=== PATIENT | male | born 1930 | race Caucasian/White ===

== ENCOUNTER 2017-10-24 10:42 | Outpatient (CLI) | payer MEDICARE, OTHER ==
[2017-10-24] MEDS ORDERED: Gadobenate Dimeglumine 529 MG/1 ML (20ML VIAL) ONE (14:59)
== END 2017-10-24 10:43 | disposition home or self-care (01) ==
LOC: BICMRI 10:42
PROVIDERS: ATTEND Surgery
DX: R22.41 Localized swelling, mass and lump, right lower limb (principal)
CPT/HCPCS: A9579

== ENCOUNTER 2017-12-05 12:52 | Emergency (ER) | payer MEDICARE, OTHER ==
[2017-12-05 13:46] LABS: Hemoglobin 15.4 g/dL (14.0-18.0); Mean Corpuscular HGB CONC 32.4 g/dL (32.0-36.0); Mean Corpuscular Hemoglobin 31.3 pg (27.0-31.0); Mean Corpuscular Volume 96.7 fL (78.0-98.0); Mean Platelet Volume 8.4 fL (7.4-10.4); Platelet Count 197 thou/uL (130-400); RBC Distribution Width 13.5 % (11.5-14.5); Red Blood Cell (RBC) Count 4.93 mill/uL (4.70-6.10); White Blood Cell (WBC) Count 27.3 thou/uL (4.8-10.8)
--- NOTE | 2017-12-05 13:49 | RAD ---
FRONTAL RADIOGRAPH CHEST: Date: 12/05/17 COMPARISON: 09/01/15. HISTORY: Cough with shortness of breath. FINDINGS: There is a small left pneumothorax in the left lung apex. There is bilateral perihilar air space dise ase, right greater than left, with pulmonary vascular prominence. There is pleural density in the lef t base with obscuration of the left hemidiaphragm and the left costophrenic angle. Pleural density in the left base is unchanged. IMPRESSION: New small pneumothorax and left lung apex. Nonspecific bilateral perihilar air space disease, right g reater than left. This could be on the basis of edema or infectious pneumonitis. Follow-up imaging fo [facility] treatment advised. Results called to Dr. Fenton at 1345 hours on 12/05/17. CODE CR. POS: [facility]
[2017-12-05 14:11] LABS: ALT (SGPT) 8 U/L (8-55); AST (SGOT) 18 U/L (5-34); Albumin 3.6 g/dL (3.4-4.8); Alkaline Phosphatase 59 U/L (40-150); Anion Gap 18 mmol/L (10-20); BUN (Urea Nitrogen) 43 mg/dL (8.4-25.7); Bilirubin, Total 1.3 mg/dL (0.2-1.2); CK (CPK) 170 U/L (30-200); Calc. Creatinine Clearance 0 mL/min (70-130); Calcium 9.3 mg/dL (7.8-10.44); Carbon Dioxide 23 mmol/L (23-31); Chloride 99 mmol/L (98-107); Estimated GFR-MDRD 37; Glucose 106 mg/dL (83-110); Lipase 4 U/L (8-78); Potassium 4.5 mmol/L (3.5-5.1); Protein, Total 6.6 g/dL (5.8-8.1); Sodium 135 mmol/L (136-145)
[2017-12-05 14:15] LABS: CKMB 5.3 ng/mL (0-6.6); Troponin I 0.034 ng/mL (< 0.028)
[2017-12-05 14:17] LABS: MDiff Complete? YES
[2017-12-05 14:18] LABS: Band 30 % (5-11); Dohle Bodies SLIGHT; Lymphocytes 3 % (21-51); Metamyelocyte 14 % (0-0); Monocytes 4 % (0-10); Myelocyte 1 % (0-0); Neutrophil 48 % (42-75); PLT Morphology Comment Appears Adequate; RBC Morphology Normal; Toxic Granulation SLIGHT; Vacuoles SLIGHT
[2017-12-05] MEDS ORDERED: Sodium Chloride 0.9% 100 ML ONE (14:49)
[2017-12-05] MEDS ORDERED: cefTRIAXone\\ROCEPHIN 2 GM VIAL ONE (14:49)
[2017-12-05] MEDS ORDERED: Azithromycin 500 MG VIAL ONE (15:30)
== END 2017-12-05 16:39 | disposition left against medical advice (07) ==
LOC: ERS 12:52
DX: J18.9 Pneumonia, unspecified organism (principal); J93.11 Primary spontaneous pneumothorax
CPT/HCPCS: 36415; 71045; 80053; 82553; 83690; 84484; 85025; 87040; 93005; J0456; J0696; J7050

== ENCOUNTER 2017-12-06 09:56 | Inpatient (IN) | payer MEDICARE, OTHER ==
[2017-12-06] MEDS ORDERED: Magnesium Sulfate 2 GM/100 ML BAG ONE (10:14)
[2017-12-06] MEDS ORDERED: Dexamethasone 10 MG/ML VIAL ONE (10:14)
[2017-12-06 10:31] LABS: Hemoglobin 15.6 g/dL (14.0-18.0); Mean Corpuscular HGB CONC 32.5 g/dL (32.0-36.0); Mean Corpuscular Hemoglobin 31.5 pg (27.0-31.0); Mean Platelet Volume 8.2 fL (7.4-10.4); Platelet Count 211 thou/uL (130-400); RBC Distribution Width 13.7 % (11.5-14.5); Red Blood Cell (RBC) Count 4.96 mill/uL (4.70-6.10); White Blood Cell (WBC) Count 25.1 thou/uL (4.8-10.8)
--- NOTE | 2017-12-06 10:32 | RAD ---
SINGLE VIEW OF THE CHEST: Comparison: 12-05-17 History: Shortness of breath for several days, cough. FINDINGS: Single view of the chest shows a cardiomediastinal silhouette which is upper limits of normal in size . There is volume loss in the left thorax. There also appears to be a moderate left pleural effusion. Increased interstitial markings are present. There may be airspace opacities scattered throughout reyna th lower lobes. IMPRESSION: 1. Moderate left pleural effusion. 2. Bilateral lower lobe airspace opacities. POS: [facility]
[2017-12-06 10:42] LABS: CO2 Tension 46.2 mmHg (35.0-45.0); O2 Tension (PaO2) 48.2 mmHg (> 60.0); pH, Arterial 7.36 (7.35-7.45)
[2017-12-06 10:43] LABS: Actual Bicarbonate (HCO3a) 25.4 mEq/L (22-28); Base Excess (BEa) -0.4 mEq/L (-2.0 to +3.0)
[2017-12-06 10:44] LABS: Hematocrit-ABG 49.9 % (42.0-52.0); Hemoglobin (Hb) 14.5 g/dL (14.0-18.0)
[2017-12-06 10:45] LABS: Calcium, Ionized 1.2 mmol/L (1.12-1.30)
[2017-12-06 10:46] LABS: Analyzer IN Cardio ER; Puncture Site L.R.
[2017-12-06] MEDS ORDERED: Albuterol Sulfate 2.5 mg/0.5 ml Neb ONE (10:49)
[2017-12-06 10:55] LABS: ALT (SGPT) 10 U/L (8-55); AST (SGOT) 22 U/L (5-34); Albumin 3.4 g/dL (3.4-4.8); Alkaline Phosphatase 68 U/L (40-150); Anion Gap 18 mmol/L (10-20); BUN (Urea Nitrogen) 63 mg/dL (8.4-25.7); Bilirubin, Total 0.6 mg/dL (0.2-1.2); CK (CPK) 172 U/L (30-200); Calc. Creatinine Clearance 0 mL/min (70-130); Calcium 9.5 mg/dL (7.8-10.44); Carbon Dioxide 21 mmol/L (23-31); Chloride 100 mmol/L (98-107); Estimated GFR-MDRD 33; Globulin 3.4 g/dL (2.4-3.5); Glucose 105 mg/dL (83-110); Lipase 6 U/L (8-78); Potassium 4.6 mmol/L (3.5-5.1); Protein, Total 6.8 g/dL (5.8-8.1); Sodium 134 mmol/L (136-145)
[2017-12-06 10:57] LABS: Band 27 % (5-11); MDiff Complete? YES; Monocytes 6 % (0-10); Neutrophil 66 % (42-75); PLT Morphology Comment Appears Adequate; RBC Morphology Normal; Reactive Lymphocytes 1 % (0-10)
[2017-12-06 10:59] LABS: Troponin I 0.276 ng/mL (< 0.028)
[2017-12-06 11:15] LABS: CKMB 7.8 ng/mL (0-6.6)
--- NOTE | 2017-12-06 12:27 | CT ---
CT ARTERIOGRAM CHEST WITH IV CONTRAST AND 3D MIP IMAGING: HISTORY: Chest pain. Dyspnea. FINDINGS: There is good contrast opacification of the pulmonary arteries and thoracic aorta with normal branchi ng of the great vessels. Small left apical pneumothorax with a small amount of bilateral pleural flu id, left greater than right. Extensive atelectasis at the right lung base. Peripheral prominent chr onic-appearing interstitial thickening with mild scattered tubular bronchiectasis. IMPRESSION: 1. No CT evidence of pulmonary embolus. 2. Small left hydropneumothorax, favored to be related to chronic lung disease and emphysema. 3. 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 Findings were called to Dr. Bowie in the emergency department at 1142 hours. CODE CR POS: [facility]
[2017-12-06] MEDS ORDERED: ISOVUE-370 76%-LOCM 1 ML ONE (12:30)
[2017-12-06 13:56] LABS: Troponin I 0.257 ng/mL (< 0.028)
[2017-12-06 14:12] LABS: Lactic Acid 2.4 mmol/L (0.5-2.2)
[2017-12-06] MEDS ORDERED: Acetaminophen 325 MG TAB PO PRN (14:34)
[2017-12-06] MEDS ORDERED: Guaifenesin DM 100-10/5 ML UDCUP PO PRN (14:34)
[2017-12-06 15:45] VITALS: BMI 23.9
[2017-12-06] MEDS: Cefepime 1 GM in Sodium Chloride 0.9% 100 ML IVPB SCH (16:20)
[2017-12-06] MEDS: Sodium Chloride 0.9% 1,000 ML IV SCH (16:20)
[2017-12-06] MEDS: Benzonatate 100 MG CAP PO SCH ×2 (16:23→21:32)
[2017-12-06 17:23] LABS: Troponin I 0.228 ng/mL (< 0.028)
[2017-12-06] MEDS: Famotidine 20 MG TAB PO SCH (21:32)
[2017-12-06] MEDS: guaiFENesin ER 600 MG TAB PO SCH (21:32)
[2017-12-06] MEDS: Docusate 100 MG CAP PO SCH (21:32)
--- NOTE | 2017-12-06 22:50 | HP ---
REASON FOR ADMISSION: Acute respiratory failure with hypoxia, pneumonia, acute kidney injury, metabolic acidosis, acute congestive heart failure exacerbation with likely diastolic dysfunction, demand ischemia, and possible sepsis. HISTORY OF PRESENTING ILLNESS: The patient says he has been feeling very lethargic and sleeping from last 3 days. In fact, came to emergency room yesterday but went against advice and he was asked to get hospitalized. He is having increasing coughing episodes and is short of breath. Patient has dry cough due to his underlying chronic obstructive pulmonary disease, but it is worse now. He is also sounding different per . Patient is not on home oxygen and uses inhaler only occasionally. The last time, he saw Dr. Puga was more than 2 or 3 years ago. PAST MEDICAL AND SURGICAL HISTORY: History of COPD, benign prostatic hypertrophy likely right medial upper thigh large lipoma. CURRENT MEDICATIONS: Finasteride 5 mg daily, Avodart 0.5 mg daily, Flomax 0.4 mg daily, promethazine with codeine at bedtime. ALLERGIES: No known drug allergies. PERSONAL HISTORY: Quit smoking more than 30 years ago, prior to which has smoked almost 2 packs a day for 40 years and was also smoking cigars then. He drinks 1 ounce of vodka with soda at noon and a glass of red wine on alternate days with his before dinner. Does not abuse drugs. Lives with his , normally ambulates with a cane. FAMILY HISTORY: Both parents at the age of 98 years from natural causes. REVIEW OF SYSTEMS: The following complete review of systems was negative, unless otherwise mentioned in the HPI or below: Constitutional: Weight loss or gain, ability to conduct usual activities. Skin: Rash, itching. Eyes: Double vision, pain. ENT/Mouth: Nose bleeding, neck stiffness, pain, tenderness. Cardiovascular: Palpitations, dyspnea on exertion, orthopnea. Respiratory: Shortness of breath, wheezing, cough, hemoptysis, fever, or night sweats. Gastrointestinal: Poor appetite, abdominal pain, heartburn, nausea, vomiting, constipation, or diarrhea. Genitourinary: Urgency, frequency, dysuria, nocturia. Musculoskeletal: Pain, swelling. Neurologic/Psychiatric: Anxiety, depression. Allergy/Immunologic: Skin rash, bleeding tendency. PHYSICAL EXAMINATION: GENERAL: The patient is an 87-year-old male who is currently not in any acute distress and is tolerating BiPAP at present. VITAL SIGNS: Blood pressure 108/54, pulse 120 per minute, respiratory rate 28 per minute, temperature 97.5 degrees Fahrenheit, saturating 95% on BiPAP. NECK: Supple, no elevated JVD. HEENT: Extraocular muscles intact. Pupils reacting to light. Oral cavity mucous membranes are dry. No exudates or congestion. CARDIOVASCULAR SYSTEM: S1, S2 heard. Regular rhythm. RESPIRATORY SYSTEM: Air entry 1+ bilateral, scattered rhonchi, and wheezes plus bilateral. ABDOMEN: Soft, bowel sounds heard. No tenderness, rigidity, or guarding. EXTREMITIES: There is mild peripheral edema, no calf tenderness. VASCULAR SYSTEM: Peripheral pulses 1+ bilateral, no ischemic ulcerations or gangrene. CENTRAL NERVOUS SYSTEM: No gross focal deficits noted. Patient is a bit hard of hearing, otherwise no focal neurologic deficits noted. PSYCHIATRIC SYSTEM: Patient is a bit anxious, otherwise no hallucinations or delusions. LABORATORY AND X-RAY FINDINGS: EKG done shows sinus tachycardia at 118 beats per minute. There is nonspecific ST-T wave changes noted. White count of 25, H &H 15 and 48, platelet count 211 with 66% neutrophils and 27% bands. Blood gas done shows a pH of 7.36, PCO2 of 46, pO2 of 48. Sodium 134, serum bicarbonate 21, BUN 63, creatinine 1.92. Lactic acid was 3.4. CK-MB 7.8, troponin I 0.27. BNP is 602. Albumin is 3.4. CT angio chest done shows no evidence of pulmonary embolus. There is small left hydropneumothorax, also findings of chronic interstitial fibrotic lung disease and multifocal pneumonitis. CLINICAL IMPRESSION AND PLAN: Patient will be admitted to [facility] for acute respiratory failure with hypoxia on BiPAP at present. We will place him on DuoNeb, Solu-Medrol 40 mg IV q.6 hourly. Blood cultures have been obtained in the ER and will obtain sputum cultures once he is able to provide one. He currently has some dry coughing spells. He will be on cefepime and Levaquin based on renal function. Gentle hydration with small amount of normal saline at 40 mL per hour as long as he is on BiPAP. Aspirin 81 mg daily, along with home doses of Proscar, Flomax, and Avodart. I have discussed code status with him and he wants to be a DNR. His is the power of deputy attorney general. The ER physician has already spoken to Dr. Emerson who is on-call for Pulmonology. [facility]
--- NOTE | 2017-12-07 03:15 | CON ---
DATE OF CONSULTATION: 12/06/2017 CONSULTING PHYSICIAN: Barbara Gonzalez MD REQUESTING PHYSICIAN: Fab Feliciano MD REASON FOR CONSULTATION: Acute kidney injury. IMPRESSION: 1. Acute kidney injury. This is likely cytokine-mediated in the context of infection; however, a co mponent of cardiorenal syndrome is possible. 2. Respiratory distress likely in the context of pleural effusion and pneumonitis. PLAN: 1. The patient having been exposed to contrast is likely that his creatinine might get worse before it begins to get better in the context of ____ contrast nephropathy; however, we will continue to daniel ally dose all medications and continue renal supportive measures. The patient is currently getting a very small amount of IV fluid, which is okay given the respiratory status of this patient. 2. Further management will be dependent on the clinical course as well as further investigations, re lates to parathyroid hormone and other electrolytes. PAST MEDICAL HISTORY: Significant for COPD. ALLERGIES: No known drug allergy. MEDICATIONS: Reviewed as documented on [employer]. SOCIAL HISTORY: The patient is , used to be at [employer]. Quit tobacco some years ago. REVIEW OF SYSTEMS: As documented in the body of the history. All the other systems were reviewed an d found not to be significantly related to the presenting illness. LABORATORY INVESTIGATION: Showed a white count of 25,000. Chemistry with a creatinine of 1.92. PHYSICAL EXAMINATION: GENERAL: The patient was found to be in some respiratory distress, noted with the following vital si gns. VITAL SIGNS: Afebrile with temperature 98.7, pulse 92, respiratory rate of 28, O2 sat 100% on 3 lite rs. HEENT: Unremarkable. CARDIOVASCULAR SYSTEM: First and second heart sounds were heard. RESPIRATORY SYSTEM: Reveals some scattered wheeze. EXTREMITIES: No peripheral edema. NEUROLOGIC: Alert, oriented. No lateralizing signs. LYMPHATICS: No peripheral lymphadenopathy. SUMMARY: An 87-year-old gentleman who presented here with shortness of breath and noted with elevate d creatinine. Thank you for this consultation. We will follow with you.
[2017-12-07 05:50] LABS: Band 29 % (5-11); Hemoglobin 14.1 g/dL (14.0-18.0); Lymphocytes 1 % (21-51); MDiff Complete? YES; Mean Corpuscular HGB CONC 33.1 g/dL (32.0-36.0); Mean Corpuscular Volume 96.7 fL (78.0-98.0); Mean Platelet Volume 8.4 fL (7.4-10.4); Metamyelocyte 1 % (0-0); Neutrophil 69 % (42-75); PLT Morphology Comment Appears Adequate; Platelet Count 189 thou/uL (130-400); RBC Distribution Width 13.5 % (11.5-14.5); Red Blood Cell (RBC) Count 4.41 mill/uL (4.70-6.10); White Blood Cell (WBC) Count 19.3 thou/uL (4.8-10.8)
[2017-12-07 05:52] LABS: Anion Gap 12 mmol/L (10-20); BUN (Urea Nitrogen) 61 mg/dL (8.4-25.7); Calc. Creatinine Clearance 45 mL/min (70-130); Calcium 9.2 mg/dL (7.8-10.44); Carbon Dioxide 25 mmol/L (23-31); Chloride 104 mmol/L (98-107); Estimated GFR-MDRD 57; Glucose 159 mg/dL (83-110); Potassium 3.9 mmol/L (3.5-5.1); Sodium 137 mmol/L (136-145)
--- NOTE | 2017-12-07 08:19 | CON ---
DATE OF CONSULTATION: 12/06/2017 HISTORY OF PRESENT ILLNESS: Brody Patton is an 87-year-old gentleman who admitted to the hospital with pneumonia and left-sided spontaneous pneumothorax. For the last week, he has been short of breath; prior to that, had been in excellent health. 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 Apparently, in the ER last night where he showed bilateral bronchopneumonia and left-sided pneumothorax. Apparently, he went home against medical advice. He drinks 5 drinks a day. Denies any alcohol abuse. He has seen Dr. Puga in our office some years ago. On most days, he can walk a block without getting markedly short of breath. PAST MEDICAL HISTORY: Apparently a history of bronchiectasis, mild hypertension. PAST SURGICAL HISTORY: Hernia repair. CHRONIC MEDICATION FROM HOME: Apparently none that to speak of per his . ALLERGIES: None. SOCIAL/FAMILY HISTORY: Unremarkable. REVIEW OF SYSTEMS: Ten-point negative. PHYSICAL EXAMINATION: GENERAL: His BiPAP was removed. He appears to be in no distress. VITAL SIGNS: Sats are 98 on 2 liters, pulse 81, blood pressure 130\70. CHEST: Decreased breath sounds without any wheezing. CARDIAC: Normal S1, S2, no gallops. ABDOMEN: Soft, no masses. LABORATORY DATA: White count is 25,000, H&H 15 and 48, platelet count is 211. His pO2 was apparently 48, pCO2 46, pH 7.36 this morning. Electrolytes are normal. Creatinine 1.92, BUN is 63. CK slightly elevated. BNP 602. IMAGING: His chest x-ray showed a small left apical pneumothorax, bilateral infiltrates with possibly small left pleural effusion which apparently has been tapped by Dr. Puga in the past. IMPRESSION: 1. Bronchopneumonia bronchiectasis. 2. Renal failure. 3. Left-sided pneumothorax. 4. Left-sided pleural effusion. PLAN: Agree with present antibiotics, nebs treatment and steroids. He may need a small bore chest tube for his left-sided pneumothorax. I doubt this pneumothorax is going to resolve spontaneously. We will notify Dr. Puga. Await sputum cultures. Consultation note, 70%, 50% in direct patient care. [facility]
--- NOTE | 2017-12-07 09:11 | RAD ---
SINGLE VIEW OF THE CHEST: Comparison: 12-06-17 History: Ventilated patient with respiratory failure. FINDINGS: Single view of the chest shows a cardiomediastinal silhouette is upper limits in size. Scarring is se en in the left thorax. There appears to be a small left pleural effusion. There is a stable small lef t apical pneumothorax. Airspace opacity seen in the right hilar region. IMPRESSION: Stable exam. POS: [facility]
[2017-12-07] MEDS: Benzonatate 100 MG CAP PO SCH ×3 (09:28→20:21)
[2017-12-07] MEDS: Enoxaparin Sodium 40 MG/0.4 ML SYRINGE SC SCH (09:28)
[2017-12-07] MEDS: Docusate 100 MG CAP PO SCH ×2 (09:29→20:22)
[2017-12-07] MEDS: Finasteride 5 MG TAB PO SCH (09:29)
[2017-12-07] MEDS: guaiFENesin ER 600 MG TAB PO SCH ×2 (09:29→20:21)
[2017-12-07] MEDS: Tamsulosin HCl 0.4 MG CAP PO SCH (09:29)
[2017-12-07] MEDS: Dutasteride 0.5 MG CAP PO SCH (09:29)
--- NOTE | 2017-12-07 13:36 | PDOC.PN ---
- Subjective Encounter Start Date: 12/07/17 Encounter Start Time: 11:40 Subjective: is off bipap, on nasal canula -: no trouble breathing, is feeling better - Objective MAR Reviewed: Yes Vital Signs & Weight: Vital Signs (12 hours) Temp Pulse Resp BP Pulse Ox 12/07/17 12:02 97.7 F 85 25 H 129/57 L 100 12/07/17 10:47 87 16 100 12/07/17 08:00 97.5 F L 90 28 H 96 12/07/17 07:39 97.5 F L 90 28 H 125/59 L 100 12/07/17 06:33 86 16 100 12/07/17 06:32 100 12/07/17 04:34 97.6 F 80 18 112/46 L 97 12/07/17 02:08 73 16 98 Weight Weight 167 lb I&O: 12/06/17 12/07/17 12/08/17 06:59 06:59 06:59 Intake Total 889 Output Total 430 Balance 459 Result Diagrams: 12/07/17 05:01 12/07/17 05:01 Phys Exam - Physical Examination HEENT: PERRLA, moist MMs Neck: no JVD, supple Respiratory: no wheezing rhonchi+ Cardiovascular: RRR, no significant murmur Gastrointestinal: soft, non-tender, positive bowel sounds Musculoskeletal: no edema, pulses present Neurological: non-focal, moves all 4 limbs Psychiatric: normal affect, A&O x 3 Dx/Plan (1) COPD exacerbation Code(s): J44.1 - CHRONIC OBSTRUCTIVE PULMONARY DISEASE W (ACUTE) EXACERBATION Status: Acute (2) Acute respiratory failure with hypoxia Code(s): J96.01 - ACUTE RESPIRATORY FAILURE WITH HYPOXIA Status: Resolved (3) REUBEN (acute kidney injury) Code(s): N17.9 - ACUTE KIDNEY FAILURE, UNSPECIFIED Status: Acute (4) Pneumothorax Code(s): J93.9 - PNEUMOTHORAX, UNSPECIFIED Status: Acute (5) BPH (benign prostatic hyperplasia) Code(s): N40.0 - BENIGN PROSTATIC HYPERPLASIA WITHOUT LOWER URINRY TRACT SYMP Status: Chronic Qualifiers: Lower urinary tract symptom presence: unspecified whether lower urinary tract symptoms present Qualified Code(s): N40.0 - Benign prostatic hyperplasia without lower urinary tract symptoms - Plan is stable on nasal canula oxygen -: nebs, steroids -: cefepime and levaquin -: creatinine is 1.2 this am -: wbc down to 19k * . Review of Systems - Medications/Allergies Allergies/Adverse Reactions: Allergies Allergy/AdvReac Type Severity Reaction Status Date / Time No Known Allergies Allergy Verified 12/06/17 16:12 Medications: Current Medications Acetaminophen (Tylenol) 650 mg PO Q4H PRN PRN Reason: Headache/Fever or Pain Albuterol/Ipratropium (Duoneb) 3 ml NEB [id number] [facility] Last Admin: 12/07/17 10:47 Dose: 3 ml Aspirin (Aspirin Chewable) 81 mg PO DAILY [facility] Last Admin: 12/07/17 09:29 Dose: 81 mg Benzonatate (Tessalon) 100 mg PO TID [facility] Last Admin: 12/07/17 09:28 Dose: 100 mg Docusate Sodium (Colace) 100 mg PO BID [facility] Last Admin: 12/07/17 09:29 Dose: Not Given Dutasteride (Avodart) 0.5 mg PO DAILY [facility] Last Admin: 12/07/17 09:29 Dose: 0.5 mg Enoxaparin Sodium (Lovenox) 40 mg SC 0900 [facility] Last Admin: 12/07/17 09:28 Dose: 40 mg Famotidine (Pepcid) 20 mg PO 2100 [facility] Last Admin: 12/06/17 21:32 Dose: 20 mg Finasteride (Proscar) 5 mg PO DAILY [facility] Last Admin: 12/07/17 09:29 Dose: 5 mg Guaifenesin (Mucinex) 600 mg PO Q12HR [facility] Last Admin: 12/07/17 09:29 Dose: 600 mg Guaifenesin/Dextromethorphan (Robitussin Dm) 15 ml PO Q4H PRN PRN Reason: Cough Cefepime HCl 1 gm/ Sodium (Chloride) 100 mls @ 200 mls/hr IVPB 1600 [facility] Last Admin: 12/06/17 16:20 Dose: 100 mls Levofloxacin 250 mg/ Device 50 mls @ 100 mls/hr IVPB 1000 [facility] Last Admin: 12/07/17 09:29 Dose: 50 mls Sodium Chloride (Normal Saline 0.9%) 1,000 mls @ 40 mls/hr IV .Q24H [facility] Last Admin: 12/06/17 16:20 Dose: 1,000 mls Methylprednisolone Sodium Succinate (Solu-Medrol) 40 mg IVP Q6HR [facility] Last Admin: 12/07/17 13:09 Dose: 40 mg Tamsulosin HCl (Flomax) 0.4 mg PO DAILY [facility] Last Admin: 12/07/17 09:29 Dose: 0.4 mg
--- NOTE | 2017-12-07 15:01 | PRG ---
DATE OF SERVICE: 12/07/2017 SUBJECTIVE: Says he feels 100% better than he felt yesterday. OBJECTIVE: VITAL SIGNS: He is afebrile, heart rate is 85, respiratory rates in the 20s, oximetry is 100%, blood pressure 129/57. LUNGS: Remarkable for crackles in both bases. HEART: Regular rhythm. ABDOMEN: Soft. LABORATORY DATA: White count 19.3, still has 29% bands. Sodium 137, potassium 3.9, chloride 104, bicarbonate 25, BUN 61, creatinine 1.21. IMPRESSION: 1. Pneumonia. 2. Bronchiectasis. 3. Status post thoracentesis for small left effusion last year that was exudative, culture negative and pathology negative. I suspect this was just parapneumonic. 4. Chronic kidney disease at 87 years of age, not surprising. 5. Small left pneumothorax and reviewed today's chest radiograph and there has been no progression, so no chest tube is indicated at this time. I do not feel thoracentesis is indicated either at this time. PLAN: Continue current antimicrobial therapy as well as nebulizer treatments. We will continue to azam roman. I met with his daughter. 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
[2017-12-07] MEDS: Cefepime 1 GM in Sodium Chloride 0.9% 100 ML IVPB SCH (15:38)
[2017-12-07] MEDS: Sodium Chloride 0.9% 1,000 ML IV SCH (16:54)
[2017-12-07] MEDS: Famotidine 20 MG TAB PO SCH (20:21)
--- NOTE | 2017-12-08 01:47 | PRG ---
DATE OF SERVICE: 12/07/2017 SUBJECTIVE: Patient is seen and examined, seems to be doing better noted with the following vital si gns. OBJECTIVE: VITAL SIGNS: Afebrile, respiratory rate of 22, O2 sat is 100%, heart rate of 85. HEENT: Unremarkable. Moist oral mucosa. NECK: Supple. No conjunctival injection or icterus. CARDIOVASCULAR: First and second heart sounds were heard. RESPIRATORY: Clear to auscultation. DIGESTIVE: Revealed a benign abdomen with positive bowel sounds. EXTREMITIES: No peripheral edema. SKIN: No new gross rash. LYMPHATICS: No peripheral lymphadenopathy. LABORATORY INVESTIGATIONS: Showed a creatinine down to 1.2. IMPRESSION: 1. Acute kidney injury which seems to have much improved. 2. Pneumonitis on treatment. 3. Chronic lung disease. PLAN: 1. Continue current renal supportive measures. 2. avoid potentially nephrotoxic agents and renally dose all medications. 3. Further management to be dependent on the clinical course.
--- NOTE | 2017-12-08 07:54 | RAD ---
SINGLE VIEW OF THE CHEST: COMPARISON: 12/07/17. HISTORY: Ventilated patient with respiratory failure. FINDINGS: A single view of the chest shows an enlarged cardiomediastinal silhouette. There is a stable small l eft apical pneumothorax. A small left pleural effusion is seen with adjacent atelectasis. IMPRESSION: Stable exam. POS: [facility]
[2017-12-08 09:04] LABS: #Lymphocytes 0.6 thou/uL (1.20-3.40); #Monocytes 0.4 thou/uL (0.11-0.59); #Neutrophils 13.1 thou/uL (1.40-6.50); %Lymphocytes 4.1 % (21.0-51.0); %Neutrophils 92.8 % (42.0-75.0); Hemoglobin 13.2 g/dL (14.0-18.0); Mean Corpuscular Hemoglobin 31.3 pg (27.0-31.0); Mean Corpuscular Volume 97.8 fL (78.0-98.0); Mean Platelet Volume 8.2 fL (7.4-10.4); Platelet Count 195 thou/uL (130-400); RBC Distribution Width 13.7 % (11.5-14.5); Red Blood Cell (RBC) Count 4.21 mill/uL (4.70-6.10); White Blood Cell (WBC) Count 14.1 thou/uL (4.8-10.8)
[2017-12-08] MEDS: Finasteride 5 MG TAB PO SCH (09:19)
[2017-12-08] MEDS: Tamsulosin HCl 0.4 MG CAP PO SCH (09:19)
[2017-12-08] MEDS: Enoxaparin Sodium 40 MG/0.4 ML SYRINGE SC SCH (09:19)
[2017-12-08] MEDS: Dutasteride 0.5 MG CAP PO SCH (09:19)
[2017-12-08] MEDS: guaiFENesin ER 600 MG TAB PO SCH ×2 (09:19→20:01)
[2017-12-08] MEDS: Docusate 100 MG CAP PO SCH ×2 (09:19→20:01)
[2017-12-08] MEDS: Benzonatate 100 MG CAP PO SCH ×3 (09:19→20:01)
[2017-12-08 09:25] LABS: Anion Gap 11 mmol/L (10-20); BUN (Urea Nitrogen) 59 mg/dL (8.4-25.7); Calc. Creatinine Clearance 53 mL/min (70-130); Calcium 9.9 mg/dL (7.8-10.44); Carbon Dioxide 28 mmol/L (23-31); Chloride 106 mmol/L (98-107); Estimated GFR-MDRD 68; Glucose 180 mg/dL (83-110); Potassium 4.1 mmol/L (3.5-5.1); Sodium 141 mmol/L (136-145)
--- NOTE | 2017-12-08 12:14 | PDOC.PN ---
- Subjective Encounter Start Date: 12/08/17 Encounter Start Time: 11:20 Subjective: breathing better, no sob -: ambulated with PT a bit -: at bedside - Objective MAR Reviewed: Yes Vital Signs & Weight: Vital Signs (12 hours) Temp Pulse Resp BP Pulse Ox 12/08/17 11:33 97.5 F L 83 29 H 132/63 92 L 12/08/17 11:05 84 18 96 12/08/17 08:00 97.3 F L 84 26 H 12/08/17 07:57 97.3 F L 84 26 H 114/50 L 94 L 12/08/17 07:33 91 L 12/08/17 07:32 68 16 12/08/17 03:57 98.1 F 77 18 110/50 L 93 L 12/08/17 02:48 78 16 95 Weight Weight 167 lb I&O: 12/07/17 12/08/17 12/09/17 06:59 06:59 06:59 Intake Total 889 559 Output Total 430 Balance 459 559 Result Diagrams: 12/08/17 08:52 12/08/17 08:52 Phys Exam - Physical Examination HEENT: PERRLA, sclera anicteric Neck: no JVD, supple Respiratory: no wheezing rhonchi++ Cardiovascular: RRR, no significant murmur Gastrointestinal: soft, non-tender, positive bowel sounds Musculoskeletal: no edema, pulses present Neurological: non-focal, moves all 4 limbs Psychiatric: A&O x 3 Dx/Plan (1) COPD exacerbation Code(s): J44.1 - CHRONIC OBSTRUCTIVE PULMONARY DISEASE W (ACUTE) EXACERBATION Status: Acute (2) Acute respiratory failure with hypoxia Code(s): J96.01 - ACUTE RESPIRATORY FAILURE WITH HYPOXIA Status: Resolved (3) REUBEN (acute kidney injury) Code(s): N17.9 - ACUTE KIDNEY FAILURE, UNSPECIFIED Status: Acute (4) Pneumothorax Code(s): J93.9 - PNEUMOTHORAX, UNSPECIFIED Status: Acute (5) BPH (benign prostatic hyperplasia) Code(s): N40.0 - BENIGN PROSTATIC HYPERPLASIA WITHOUT LOWER URINRY TRACT SYMP Status: Chronic Qualifiers: Lower urinary tract symptom presence: unspecified whether lower urinary tract symptoms present Qualified Code(s): N40.0 - Benign prostatic hyperplasia without lower urinary tract symptoms - Plan on cefepime, levaquin, nebs, steroids -: echo shows good ef, has diastolic dysfunction and rvsp of 68mmhg -: wbc down to 14k from 25k, had a bit of margination, getting corrected with -: gentle hydration. -: encourage po intake, may tx to medical floor if ok with pulm * . Review of Systems - Medications/Allergies Allergies/Adverse Reactions: Allergies Allergy/AdvReac Type Severity Reaction Status Date / Time No Known Allergies Allergy Verified 12/06/17 16:12 Medications: Current Medications Acetaminophen (Tylenol) 650 mg PO Q4H PRN PRN Reason: Headache/Fever or Pain Albuterol/Ipratropium (Duoneb) 3 ml NEB [id number] [facility] Last Admin: 12/08/17 11:05 Dose: 3 ml Aspirin (Aspirin Chewable) 81 mg PO DAILY [facility] Last Admin: 12/08/17 09:18 Dose: 81 mg Benzonatate (Tessalon) 100 mg PO TID [facility] Last Admin: 12/08/17 09:19 Dose: 100 mg Docusate Sodium (Colace) 100 mg PO BID [facility] Last Admin: 12/08/17 09:19 Dose: 100 mg Dutasteride (Avodart) 0.5 mg PO DAILY [facility] Last Admin: 12/08/17 09:19 Dose: 0.5 mg Enoxaparin Sodium (Lovenox) 40 mg SC 0900 [facility] Last Admin: 12/08/17 09:19 Dose: 40 mg Famotidine (Pepcid) 20 mg PO 2100 [facility] Last Admin: 12/07/17 20:21 Dose: 20 mg Finasteride (Proscar) 5 mg PO DAILY [facility] Last Admin: 12/08/17 09:19 Dose: 5 mg Guaifenesin (Mucinex) 600 mg PO Q12HR [facility] Last Admin: 12/08/17 09:19 Dose: 600 mg Guaifenesin/Dextromethorphan (Robitussin Dm) 15 ml PO Q4H PRN PRN Reason: Cough Cefepime HCl 1 gm/ Sodium (Chloride) 100 mls @ 200 mls/hr IVPB 1600 [facility] Last Admin: 12/07/17 15:38 Dose: 100 mls Levofloxacin 250 mg/ Device 50 mls @ 100 mls/hr IVPB 1000 [facility] Last Admin: 12/08/17 09:19 Dose: 50 mls Sodium Chloride (Normal Saline 0.9%) 1,000 mls @ 40 mls/hr IV .Q24H [facility] Last Admin: 12/07/17 16:54 Dose: 1,000 mls Methylprednisolone Sodium Succinate (Solu-Medrol) 40 mg IVP Q6HR [facility] Last Admin: 12/08/17 11:52 Dose: 40 mg Tamsulosin HCl (Flomax) 0.4 mg PO DAILY [facility] Last Admin: 12/08/17 09:19 Dose: 0.4 mg
--- NOTE | 2017-12-08 16:11 | PRG ---
DATE OF SERVICE: 12/08/2017 SUBJECTIVE: Brody Patton says he continues to feel better. His feels he looks better today th an he looked last night. She says about every 12 hours he seems to be improved. OBJECTIVE: VITAL SIGNS: He is afebrile, heart rate 83, respirations 20, oximetry is 92, blood pressure 132/63. LUNGS: Still remarkable for crackles in both lung bases. CARDIOVASCULAR: Regular rhythm. ABDOMEN: Soft. LABORATORY DATA: White count is 14.1, hemoglobin 13.2, platelets 195. Manual differential was not d one today. Sodium 141, potassium 4.1, chloride 106, bicarb 28, BUN 59, creatinine 1.03. IMPRESSION: 1. Pneumonia. 2. Bronchiectasis. 3. Deconditioning. 4. Advanced age. I reviewed today's chest radiograph. There is no significant change. Hopefully, tomorrow we can continue IV antibiotics and consider sending him home. He will need a nebulizer at home help facilitate secretions and he may need oxygen at home as well. We will address these issues first thing in the morning and write prescriptions if necessary.
[2017-12-08] MEDS: Sodium Chloride 0.9% 1,000 ML IV SCH (16:32)
[2017-12-08] MEDS: Cefepime 1 GM in Sodium Chloride 0.9% 100 ML IVPB SCH (16:33)
--- NOTE | 2017-12-08 17:02 | PRG ---
DATE OF SERVICE: 12/08/2017 SUBJECTIVE: The patient is seen and examined today. He seems to be doing much better, feeling dulce r, noted with the following vital signs. PHYSICAL EXAMINATION: VITAL SIGNS: Afebrile, temperature 97.5, pulse 83, respiratory rate of 20, O2 sat 92%, blood pressur e 132/63. HEENT EXAMINATION: Unremarkable. Moist oral mucosa. No conjunctival injection or icterus. NECK: Supple. CARDIOVASCULAR SYSTEM: First and second heart sounds were heard. RESPIRATORY SYSTEM: Clear to auscultation with some rales. DIGESTIVE SYSTEM: Revealed abdomen. EXTREMITIES: No peripheral edema. SKIN EXAMINATION: No new gross rash except some bruises here and there. LYMPHATICS: No peripheral lymphadenopathy. LABORATORY INVESTIGATIONS: Significant for chemistry showed a creatinine back to 1.03 with a bicarbo sarai of 28. IMPRESSION: Acute kidney injury, which seems to have resolved. PLAN: 1. We will continue current renal supportive measures. 2. We will sign off and be available if we are called in, if need be.
[2017-12-08] MEDS: Famotidine 20 MG TAB PO SCH (20:01)
[2017-12-09] MEDS: Sodium Chloride 0.9% 1,000 ML IV SCH (00:29)
[2017-12-09 04:16] LABS: Anion Gap 9 mmol/L (10-20); BUN (Urea Nitrogen) 52 mg/dL (8.4-25.7); Calc. Creatinine Clearance 66 mL/min (70-130); Calcium 9.1 mg/dL (7.8-10.44); Carbon Dioxide 28 mmol/L (23-31); Chloride 105 mmol/L (98-107); Estimated GFR-MDRD 87; Glucose 175 mg/dL (83-110); Potassium 4.1 mmol/L (3.5-5.1); Sodium 138 mmol/L (136-145)
[2017-12-09 05:20] LABS: Band 20 % (5-11); Hemoglobin 11.7 g/dL (14.0-18.0); Lymphocytes 4 % (21-51); MDiff Complete? YES; Mean Corpuscular HGB CONC 31.6 g/dL (32.0-36.0); Mean Corpuscular Hemoglobin 30.9 pg (27.0-31.0); Mean Corpuscular Volume 97.9 fL (78.0-98.0); Mean Platelet Volume 8.2 fL (7.4-10.4); Monocytes 5 % (0-10); Neutrophil 71 % (42-75); Platelet Count 185 thou/uL (130-400); RBC Distribution Width 13.5 % (11.5-14.5); Red Blood Cell (RBC) Count 3.78 mill/uL (4.70-6.10); White Blood Cell (WBC) Count 12.5 thou/uL (4.8-10.8)
--- NOTE | 2017-12-09 08:40 | RAD ---
CHEST 1 VIEW: HISTORY: Ventilated patient. COMPARISON: Radiograph of prior day. FINDINGS: The left-sided pneumothorax is predominantly filled with fluid. Multifocal airspace opacities are pr esent. There is thickening of the left upper lobe. Moderate layering left pleural effusion. IMPRESSION: 1. Predominantly fluid filling of the left pneumothorax, although this is a semierect exam and not a n erect exam. 2. Multifocal airspace opacities. POS: [facility]
[2017-12-09] MEDS: Benzonatate 100 MG CAP PO SCH ×3 (09:02→20:51)
[2017-12-09] MEDS: Docusate 100 MG CAP PO SCH ×2 (09:02→20:52)
[2017-12-09] MEDS: guaiFENesin ER 600 MG TAB PO SCH ×2 (09:03→20:52)
[2017-12-09] MEDS: Finasteride 5 MG TAB PO SCH (09:03)
[2017-12-09] MEDS: Enoxaparin Sodium 40 MG/0.4 ML SYRINGE SC SCH (09:03)
[2017-12-09] MEDS: Dutasteride 0.5 MG CAP PO SCH (09:03)
[2017-12-09] MEDS: Tamsulosin HCl 0.4 MG CAP PO SCH (09:03)
--- NOTE | 2017-12-09 10:33 | PRG ---
DATE OF SERVICE: 12/09/2017 Mr. Patton says he is feeling better. He got up to go to the bathroom this morning and the nurse tel ls me he is very unstable on his feet. PHYSICAL EXAMINATION: VITAL SIGNS: He is afebrile, heart rate 76, respiratory rate 18, oximetry is 93. Blood pressure 136 /54. LUNGS: Remarkable for diffuse crackles posteriorly. HEART: Regular rhythm. ABDOMEN: Soft. LABORATORY DATA: White count 12.5, hemoglobin 11.7, platelets 185. Sodium 138, potassium 4.1, chloride 105, bicarbonate 28, BUN 52, creatinine 0.83. IMPRESSION: 1. Bronchiectasis. 2. Intravascular volume depletion on presentation. 3. Pneumonia, community acquired. 4. Prerenal azotemia, improved. 5. Weakness with advanced age and deconditioning. I would recommend physical therapy prior to being discharged home. It is unclear to me whether or no t the family will be able to take care of him, but he says he has a son-in-law and daughter that will be able to care for him. I am concerned about an extremely high fall risk in him. I will switch hi m to p.o. antimicrobial therapy today. Make sure physical therapy has seen him.
--- NOTE | 2017-12-09 16:21 | PDOC.PN ---
- Subjective Encounter Start Date: 12/09/17 Encounter Start Time: 13:00 Subjective: feels better, no sob -: unsteady on feet per staff - Objective MAR Reviewed: Yes Vital Signs & Weight: Vital Signs (12 hours) Temp Pulse Pulse Pulse Resp BP BP 12/09/17 15:32 98.2 F 82 18 12/09/17 14:00 86 84 139/69 145/69 H 12/09/17 13:39 79 18 12/09/17 11:07 98.4 F 85 16 12/09/17 10:12 76 18 12/09/17 07:51 97.6 F 87 19 12/09/17 07:43 97.6 F 87 19 12/09/17 06:29 12/09/17 06:26 74 18 12/09/17 04:34 98.2 F 74 21 H BP Pulse Ox 12/09/17 15:32 129/64 90 L 12/09/17 14:00 12/09/17 13:39 97 12/09/17 11:07 131/56 L 99 12/09/17 10:12 93 L 12/09/17 07:51 12/09/17 07:43 136/54 L 92 L 12/09/17 06:29 95 12/09/17 06:26 93 L 12/09/17 04:34 106/45 L 94 L Weight Weight 167 lb I&O: 12/08/17 12/09/17 12/10/17 06:59 06:59 06:59 Intake Total 559 1500 Output Total 850 Balance 559 650 Result Diagrams: 12/09/17 03:23 12/09/17 03:23 Phys Exam - Physical Examination HEENT: PERRLA, sclera anicteric Neck: no JVD, supple Respiratory: no wheezing, no rales rhonchi++ Cardiovascular: RRR, no significant murmur Gastrointestinal: soft, non-tender, positive bowel sounds Musculoskeletal: no edema, pulses present Neurological: non-focal, moves all 4 limbs Psychiatric: A&O x 3 Dx/Plan (1) COPD exacerbation Code(s): J44.1 - CHRONIC OBSTRUCTIVE PULMONARY DISEASE W (ACUTE) EXACERBATION Status: Acute (2) Acute respiratory failure with hypoxia Code(s): J96.01 - ACUTE RESPIRATORY FAILURE WITH HYPOXIA Status: Resolved (3) REUBEN (acute kidney injury) Code(s): N17.9 - ACUTE KIDNEY FAILURE, UNSPECIFIED Status: Acute Comment: almost at baseline (4) Pneumothorax Code(s): J93.9 - PNEUMOTHORAX, UNSPECIFIED Status: Acute (5) BPH (benign prostatic hyperplasia) Code(s): N40.0 - BENIGN PROSTATIC HYPERPLASIA WITHOUT LOWER URINRY TRACT SYMP Status: Chronic Qualifiers: Lower urinary tract symptom presence: unspecified whether lower urinary tract symptoms present Qualified Code(s): N40.0 - Benign prostatic hyperplasia without lower urinary tract symptoms - Plan wbc down to 12 with normalizing renal function -: is on cefepime and levaquin -: steroids, nebs -: PT to mobilize as tolerated, ?rehab/swing bed if he agrees -: May tx to medical floor if ok with pulm * . Review of Systems - Medications/Allergies Allergies/Adverse Reactions: Allergies Allergy/AdvReac Type Severity Reaction Status Date / Time No Known Allergies Allergy Verified 12/06/17 16:12 Medications: Current Medications Acetaminophen (Tylenol) 650 mg PO Q4H PRN PRN Reason: Headache/Fever or Pain Albuterol/Ipratropium (Duoneb) 3 ml NEB [id number] [facility] [place] Last Admin: 12/09/17 13:39 Dose: 3 ml Aspirin (Aspirin Chewable) 81 mg PO DAILY [facility] Last Admin: 12/09/17 09:02 Dose: 81 mg Benzonatate (Tessalon) 100 mg PO TID [facility] Last Admin: 12/09/17 15:49 Dose: 100 mg Cefdinir (Omnicef) 300 mg PO BID [facility] Docusate Sodium (Colace) 100 mg PO BID [facility] [place] Last Admin: 12/09/17 09:02 Dose: 100 mg Dutasteride (Avodart) 0.5 mg PO DAILY [facility] [place] Last Admin: 12/09/17 09:03 Dose: 0.5 mg Enoxaparin Sodium (Lovenox) 40 mg SC 0900 [facility] [place] Last Admin: 12/09/17 09:03 Dose: 40 mg Famotidine (Pepcid) 20 mg PO 2100 [facility] [place] Last Admin: 12/08/17 20:01 Dose: 20 mg Finasteride (Proscar) 5 mg PO DAILY [facility] [place] Last Admin: 12/09/17 09:03 Dose: 5 mg Guaifenesin (Mucinex) 600 mg PO Q12HR [facility] [place] Last Admin: 12/09/17 09:03 Dose: 600 mg Guaifenesin/Dextromethorphan (Robitussin Dm) 15 ml PO Q4H PRN PRN Reason: Cough Prednisone (Prednisone) 20 mg PO QAM-[facility] Tamsulosin HCl (Flomax) 0.4 mg PO DAILY [facility] [place] Last Admin: 12/09/17 09:03 Dose: 0.4 mg
[2017-12-09] MEDS: Cefdinir 300 MG CAP PO SCH (20:51)
[2017-12-09] MEDS: Famotidine 20 MG TAB PO SCH (20:52)
[2017-12-10 05:20] LABS: Anion Gap 8 mmol/L (10-20); BUN (Urea Nitrogen) 44 mg/dL (8.4-25.7); Calc. Creatinine Clearance 72 mL/min (70-130); Calcium 8.7 mg/dL (7.8-10.44); Carbon Dioxide 31 mmol/L (23-31); Chloride 105 mmol/L (98-107); Estimated GFR-MDRD Greater than 90; Glucose 94 mg/dL (83-110); Potassium 4.2 mmol/L (3.5-5.1); Sodium 140 mmol/L (136-145)
[2017-12-10 06:23] LABS: Hemoglobin 12.7 g/dL (14.0-18.0); Mean Corpuscular HGB CONC 32.1 g/dL (32.0-36.0); Mean Corpuscular Hemoglobin 31.6 pg (27.0-31.0); Mean Corpuscular Volume 98.2 fL (78.0-98.0); Mean Platelet Volume 8.1 fL (7.4-10.4); Platelet Count 193 thou/uL (130-400); RBC Distribution Width 13.7 % (11.5-14.5); Red Blood Cell (RBC) Count 4.01 mill/uL (4.70-6.10); White Blood Cell (WBC) Count 11.7 thou/uL (4.8-10.8)
[2017-12-10 06:49] LABS: Band 5 % (5-11); Eosinophils 4 % (0-10); Lymphocytes 8 % (21-51); MDiff Complete? YES; Metamyelocyte 1 % (0-0); Monocytes 11 % (0-10); Myelocyte 1 % (0-0); Neutrophil 68 % (42-75); Reactive Lymphocytes 2 % (0-10)
[2017-12-10] MEDS ORDERED: predniSONE 20 MG TAB PO SCH (08:00)
[2017-12-10] MEDS: Cefdinir 300 MG CAP PO SCH (08:47)
[2017-12-10] MEDS: Benzonatate 100 MG CAP PO SCH (08:47)
[2017-12-10] MEDS: Finasteride 5 MG TAB PO SCH (08:47)
[2017-12-10] MEDS: Docusate 100 MG CAP PO SCH (08:48)
[2017-12-10] MEDS: guaiFENesin ER 600 MG TAB PO SCH (08:48)
[2017-12-10] MEDS: Enoxaparin Sodium 40 MG/0.4 ML SYRINGE SC SCH (08:48)
[2017-12-10] MEDS: Tamsulosin HCl 0.4 MG CAP PO SCH (08:51)
[2017-12-10] MEDS: Dutasteride 0.5 MG CAP PO SCH (09:59)
--- NOTE | 2017-12-10 12:42 | PDOC.PN ---
- Subjective Encounter Start Date: 12/10/17 Encounter Start Time: 10:15 Subjective: no sob, feels better -: still coughing, on nasal canula - Objective MAR Reviewed: Yes Vital Signs & Weight: Vital Signs (12 hours) Temp Pulse Resp BP BP Pulse Ox 12/10/17 11:41 97.5 F L 92 22 H 158/64 H 92 L 12/10/17 10:29 78 18 94 L 12/10/17 08:00 97.9 F 86 22 H 94 L 12/10/17 07:39 97.9 F 86 22 H 145/65 H 91 L 12/10/17 07:16 77 20 92 L 12/10/17 04:00 97.8 F 78 18 138/68 94 L 12/10/17 02:15 81 16 95 Weight Weight 167 lb I&O: 12/09/17 12/10/17 12/11/17 06:59 06:59 06:59 Intake Total 1500 1150 Output Total 850 950 Balance 650 200 Result Diagrams: 12/10/17 03:55 12/10/17 03:55 Phys Exam - Physical Examination HEENT: PERRLA, moist MMs Neck: no JVD, supple Respiratory: no wheezing, no rales rhonchi++ Cardiovascular: RRR, no significant murmur Gastrointestinal: soft, non-tender, positive bowel sounds Musculoskeletal: no edema, pulses present Neurological: non-focal, moves all 4 limbs Dx/Plan (1) COPD exacerbation Code(s): J44.1 - CHRONIC OBSTRUCTIVE PULMONARY DISEASE W (ACUTE) EXACERBATION Status: Acute (2) Acute respiratory failure with hypoxia Code(s): J96.01 - ACUTE RESPIRATORY FAILURE WITH HYPOXIA Status: Resolved (3) REUBEN (acute kidney injury) Code(s): N17.9 - ACUTE KIDNEY FAILURE, UNSPECIFIED Status: Acute Comment: almost at baseline (4) Pneumothorax Code(s): J93.9 - PNEUMOTHORAX, UNSPECIFIED Status: Acute (5) BPH (benign prostatic hyperplasia) Code(s): N40.0 - BENIGN PROSTATIC HYPERPLASIA WITHOUT LOWER URINRY TRACT SYMP Status: Chronic Qualifiers: Lower urinary tract symptom presence: unspecified whether lower urinary tract symptoms present Qualified Code(s): N40.0 - Benign prostatic hyperplasia without lower urinary tract symptoms - Plan is on omnicef and prednisone -: nebs, home meds for bph -: home oxygen has been set up -: refuses rehab/swing bed, HH with PT or outpt rehab if family can take him -: dc plan per pulm advice * . Review of Systems - Medications/Allergies Allergies/Adverse Reactions: Allergies Allergy/AdvReac Type Severity Reaction Status Date / Time No Known Allergies Allergy Verified 12/06/17 16:12 Medications: Current Medications Acetaminophen (Tylenol) 650 mg PO Q4H PRN PRN Reason: Headache/Fever or Pain Albuterol/Ipratropium (Duoneb) 3 ml NEB [id number] [facility] Last Admin: 12/10/17 10:29 Dose: 3 ml Aspirin (Aspirin Chewable) 81 mg PO DAILY [facility] Last Admin: 12/10/17 08:47 Dose: 81 mg Benzonatate (Tessalon) 100 mg PO TID [facility] Last Admin: 12/10/17 08:47 Dose: 100 mg Cefdinir (Omnicef) 300 mg PO BID [facility] Last Admin: 12/10/17 08:47 Dose: 300 mg Docusate Sodium (Colace) 100 mg PO BID [facility] Last Admin: 12/10/17 08:48 Dose: 100 mg Dutasteride (Avodart) 0.5 mg PO DAILY [facility] Last Admin: 12/10/17 09:59 Dose: 0.5 mg Enoxaparin Sodium (Lovenox) 40 mg SC 0900 [facility] Last Admin: 12/10/17 08:48 Dose: 40 mg Famotidine (Pepcid) 20 mg PO 2100 [facility] Last Admin: 12/09/17 20:52 Dose: 20 mg Finasteride (Proscar) 5 mg PO DAILY [facility] Last Admin: 12/10/17 08:47 Dose: 5 mg Guaifenesin (Mucinex) 600 mg PO Q12HR [facility] Last Admin: 12/10/17 08:48 Dose: 600 mg Guaifenesin/Dextromethorphan (Robitussin Dm) 15 ml PO Q4H PRN PRN Reason: Cough Prednisone (Prednisone) 20 mg PO QAM-WM [facility] Last Admin: 12/10/17 08:48 Dose: 20 mg Tamsulosin HCl (Flomax) 0.4 mg PO DAILY [facility] Last Admin: 12/10/17 08:51 Dose: 0.4 mg
[2017-12-10] MEDS ORDERED: Furosemide 40 MG/4 ML VIAL SLOW IVP SCH (15:45)
--- NOTE | 2017-12-10 16:08 | PRG ---
DATE OF SERVICE: 12/10/2017 SERVICE: Pulmonary Medicine. INTERVAL HISTORY: The patient is doing really well from a respiratory standpoint. He denies any phillip st pain, nausea, vomiting, fevers or chills. He is essentially back to his usual state of health. Amaris rubalcava is coughing almost continuously. He brings up a little bit of yellow sputum. He previously had a rust color to it. That being said, it seems to be clearing out. He feels much better than he did on presentation. PHYSICAL EXAMINATION: VITAL SIGNS: Afebrile, pulse 92, blood pressure 158/64, respirations 22, saturation 94% on 2 liters nasal cannula. GENERAL: The patient is awake, alert, no apparent distress. LUNGS: Rhonchi are extensive throughout bilateral lung costa. There is a prolonged expiratory phas e. I do appreciate wheezing. Crackles also noted. HEART: Normal rate, regular. ABDOMEN: Soft, nontender and nondistended. Bowel sounds are positive. MUSCULOSKELETAL: No cyanosis or clubbing. There is 1-2+ pitting in the bilateral lower extremities. NEUROLOGIC: Nonfocal. LABORATORY DATA: WBC 11.7 and down trending, hemoglobin 12.7, platelets 193,000. PH 7.36, pCO2 46, pO2 of 48. Basic metabolic profile is essentially unremarkable. Blood cultures x2 are unremarkable and respiratory culture is also negative to date. ASSESSMENT: 1. Acute on chronic hypoxic respiratory failure. 2. Bronchiectasis with acute exacerbation. 3. Community-acquired pneumonia, improving. 4. Acute kidney injury, resolved. 5. Debility. DISCUSSION AND PLAN: The patient's bronchiectasis is a big issue here. He has been treating it prev iously with cough suppressants. This is the opposite of our goal. With bronchiectasis, we want to e xpectorate the mucus that stuck down there. He is going to talk to Dr. Puga about this in the outpa tient setting to determine whether or not physiotherapy would be appropriate for him. He is currentl y volume up. It is unlikely that the IV antibiotics and fluid resuscitation that he got during his h ospital stay cause this. We are going to give him 1 dose of Lasix, but yes from my perspective, he c an be considered for transition out of the hospital today. He will go out on DuoNebs 3 times daily. He will follow up with Dr. Puga in the outpatient setting to determine whether or not long-acting t herapy is appropriate for him. If he remains inhouse, I will continue to follow, but from my perspec tive, he is stable for transition home.
[2017-12-10 16:38] VITALS: BP 153/70; TEMP 98.5
--- NOTE | 2017-12-11 21:17 | DIS ---
DATE OF ADMISSION: 12/06/2017 DATE OF DISCHARGE: 12/10/2017 DISCHARGE DISPOSITION: To home. 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 PROCEDURES DONE DURING HOSPITALIZATION: The patient had CT angio chest done on the day of admission, which showed no evidence of PE. 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 Echo with 2D Doppler was done, which showed an EF of 60% to 65%, grade I/ III diastolic dysfunction, elevated RV systolic pressures estimated at 68 mmHg, had a dilated aortic root measuring at 3.9 cm, moderate pulmonic regurgitation. Blood cultures x2, no growth. Respiratory culture grew normal respiratory mj. Had a white count of 25 with discharge numbers of 11. Discharge H&H 12 and 39, platelet count is 193. Blood gas done on admission showed a pH of 7.36 , pCO2 of 46, pO2 of 48. Discharge BUN and creatinine of 44 and 0.7. Admitting BUN and creatinine were 63 and 1.92. BNP 602. Troponin I indeterminate peaking up to 0.27. CK-MB 7.8. INPATIENT CONSULTATIONS: Dr. Puga/Dr. Crow for Pulmonology, Dr. Jimenez for Nephrology. DISCHARGE PLAN: The patient to follow up with Dr. Puga in 3 weeks. He also needs to follow up with his primary care physician in 1 week. DISCHARGE MEDICATIONS: Omnicef 300 mg p.o. twice daily for another 6 days, prednisone tapering dose starting at 10 mg twice daily over a course of 10 days , Flomax 0.4 mg p.o. daily, finasteride 5 mg p.o. daily, Avodart 0.5 mg p.o. daily, aspirin 81 mg p.o. daily. ALLERGIES: No known drug allergies. BRIEF COURSE DURING HOSPITALIZATION: The patient initially got admitted on the with complaints of shortness of breath. He was also very lethargic on arrival. The patient was placed on BiPAP for acute respiratory failure with hypoxia. There was also initial suspicion for pneumonia. The patient had acute kidney injury with metabolic acidosis and CHF exacerbation as well with diastolic dysfunction. He also had demand ischemia and elevated white count with suspicion for sepsis. The patient was admitted to [facility]. He was evaluated by Dr. Emerson/Dr. Puga/Dr. Crow for Pulmonology Service. He has had gentle hydration done initially and was on broad-spectrum antibiotics along with steroids and nebulizers. The patient has responded well to all above measures. He has deconditioning and is at risk for falls, but the patient is adamant of going home with home health and PT. The patient had small pneumothorax, likely secondary to rupture of one of the blebs that he has with severe emphysema and longstanding COPD. Home oxygen has been arranged prior to discharge due to hypoxia with saturations dropping down to 83% on room air. He needs to continue oxygen for [address] Puga will re-evaluate him if he still requires oxygen from then on. Please see a [id number] documentation for the day of discharge on [facility]. [facility]
--- NOTE | 2017-12-14 11:34 | EKG ---
Test Reason : SOB Blood Pressure : / mmHG Vent. Rate : 118 BPM Atrial Rate : 118 BPM P-R Int : 148 ms QRS Dur : 072 ms QT Int : 280 ms P-R-T Axes : 076 059 049 degrees QTc Int : 392 ms Sinus tachycardia Nonspecific T wave abnormality Abnormal ECG Confirmed by CARIDAD FORD, LISSETH ([id number]), restaurant expeditor CARIDAD MYLES ([id number]) on 12/14/2017 11:33:50 AM Referred By: Confirmed By:LISSETH MCLEAN MD
== END 2017-12-10 18:11 | disposition home health service (06) | DRG 193 ==
LOC: ERS 09:56 → IMCU/EMU 15:36 → T4-B 12-09 18:30
PROVIDERS: ADMIT Internal Medicine; ATTEND Internal Medicine
PROC: 5A09357 Assistance with Respiratory Ventilation, Less than 24 Consecutive Hours, Continuous Positive Airway Pressure (ICD-10-PCS; principal; 2017-12-06)
DX: J18.9 Pneumonia, unspecified organism (principal); J96.01 Acute respiratory failure with hypoxia; I50.31 Acute diastolic (congestive) heart failure; J93.12 Secondary spontaneous pneumothorax; Z66 Do not resuscitate; N17.9 Acute kidney failure, unspecified; E87.2 Acidosis; I24.8 Other forms of acute ischemic heart disease; J91.8 Pleural effusion in other conditions classified elsewhere; J47.1 Bronchiectasis with (acute) exacerbation; J47.0 Bronchiectasis with acute lower respiratory infection; E86.9 Volume depletion, unspecified; J84.10 Pulmonary fibrosis, unspecified; I37.1 Nonrheumatic pulmonary valve insufficiency; J43.9 Emphysema, unspecified; N40.0 Benign prostatic hyperplasia without lower urinary tract symptoms; Z79.899 Other long term (current) drug therapy; Z87.891 Personal history of nicotine dependence; Z79.82 Long term (current) use of aspirin
CPT/HCPCS: 36415; 71045; 71275; 80048; 80053; 82550; 82553; 82805; 83605; 83690; 83880; 84484; 85025; 87040; 87070; 87205; 93005; 93306; 93798; 94660; 96361; 96365; 96366; 96367; 96375; G8978-GP-CJ; G8979-GP-CJ; G8980-GP-CJ; J0456; J0692; J0696; J1100; J1650; J1940; J1956; J2920; J3475; J7050; J7506; J7611; J7620

== ENCOUNTER 2018-04-18 10:23 | Outpatient (CLI) | payer MEDICARE, OTHER ==
--- NOTE | 2018-04-18 15:30 | RAD ---
CHEST TWO VIEWS: HISTORY: Dyspnea. COMPARISON: Radiograph from 01/10/2018. FINDINGS: Layering left effusion is similar. The peripheral pleural scarring is similar. Multifocal air space opacities in the right lung are similar. There is a bullous formation in the right lower lobe. The cardiac silhouette is similar. No acute o sseous abnormality. IMPRESSION: No significant change in the radiographic appearance of the chest. POS: [facility]
== END 2018-04-18 10:24 | disposition home or self-care (01) ==
LOC: RAD 10:23
PROVIDERS: ATTEND Internal Medicine Critical Care Medicine
DX: R06.00 Dyspnea, unspecified (principal)
CPT/HCPCS: 71046

== ENCOUNTER 2018-08-04 09:55 | Outpatient (CLI) | payer MEDICARE, OTHER ==
--- NOTE | 2018-08-04 11:54 | RAD ---
CHEST TWO VIEWS: HISTORY: Dyspnea. COMPARISON: 04/18/2018 FINDINGS: Two views of the chest show stable opacification at the inferior aspect of the left thorax. Scarring is seen along the left lateral chest wall. Left apical pleural thickening is stable. Increased int erstitial markings are present. The heart is normal in size. There is shift of the mediastinum to t he left. IMPRESSION: Stable examination. POS: [facility]
== END 2018-08-04 09:56 | disposition home or self-care (01) ==
LOC: RAD 09:55
PROVIDERS: ATTEND Internal Medicine Critical Care Medicine
DX: R06.00 Dyspnea, unspecified (principal)
CPT/HCPCS: 71046

== ENCOUNTER 2018-12-19 11:59 | Inpatient (IN) | payer MEDICARE, OTHER ==
[2018-12-19] MEDS ORDERED: Azithromycin 500 MG VIAL ONE (12:37)
[2018-12-19] MEDS ORDERED: cefTRIAXone\\ROCEPHIN 2 GM VIAL ONE (12:37)
[2018-12-19 12:43] LABS: Hemoglobin 13.8 g/dL (14.0-18.0); Mean Corpuscular HGB CONC 31.7 g/dL (32.0-36.0); Mean Corpuscular Hemoglobin 30.4 pg (27.0-31.0); Mean Platelet Volume 8.6 fL (7.4-10.4); Platelet Count 227 thou/uL (130-400); Red Blood Cell (RBC) Count 4.54 mill/uL (4.70-6.10); White Blood Cell (WBC) Count 21.7 thou/uL (4.8-10.8)
[2018-12-19 12:57] LABS: Band 8 % (5-11); Lymphocytes 7 % (21-51); MDiff Complete? YES; Monocytes 4 % (0-10); Neutrophil 81 % (42-75); RBC Morphology Normal
[2018-12-19 13:07] LABS: ALT (SGPT) 23 U/L (8-55); AST (SGOT) 21 U/L (5-34); Albumin 3.2 g/dL (3.4-4.8); Alkaline Phosphatase 125 U/L (40-150); Anion Gap 13 mmol/L (10-20); BUN (Urea Nitrogen) 19 mg/dL (8.4-25.7); Bilirubin, Total 1.3 mg/dL (0.2-1.2); Calc. Creatinine Clearance 0 mL/min (70-130); Calcium 8.8 mg/dL (7.8-10.44); Carbon Dioxide 26 mmol/L (23-31); Chloride 102 mmol/L (98-107); Estimated GFR-MDRD 86; Globulin 3.6 g/dL (2.4-3.5); Glucose 97 mg/dL (83-110); Potassium 4.9 mmol/L (3.5-5.1); Protein, Total 6.8 g/dL (5.8-8.1); Sodium 136 mmol/L (136-145)
--- NOTE | 2018-12-19 13:12 | RAD ---
XR Chest 1 View Portable History: Shortness of breath Comparison: Radiograph August 04, 2018 Findings: Large right basilar bulla. New left upper lobe airspace consolidation. Peripheral pleural s carring left upper lobe. Moderate layering left pleural effusion, increased in size from the comparison examination. Impression: Worsening consolidation in left upper lobe concerning for pneumonia versus malignant proc ess. Nonemergent follow-up CT of the chest is recommended. Possible left basilar hydropneumothorax.
--- NOTE | 2018-12-19 15:25 | HP ---
PRIMARY CARE PHYSICIAN: De Olmedo MD REASON FOR ADMISSION: Acute respiratory failure with hypoxia, pneumonia, and sepsis. HISTORY OF PRESENT ILLNESS: This is an 88-year-old male who has underlying history of bronchiectasis, who presented to emergency room with complaint of increasing shortness of breath. The patient reports that he is chronically short of breath , but for last 2-3 days, he is experiencing worse shortness of breath. He has cough productive of white sputum. He has low-grade fever. He denies any hemoptysis. He denies any pleuritic chest pain. The patient reports that he lost almost 15 pounds over last few months. He was feeling more fatigue and tired. He was subjectively feeling fever, but he did not measure temperature. When he came to emergency room, he was tachycardic, tachypneic and hypoxic as well as febrile. His routine blood test showed leukocytosis. He was meeting sepsis criteria. He was requiring non-rebreather oxygen in the emergency room. When I saw at that time patient was stabilized, but he was still tachycardic and requiring high-flow oxygen and that is why we decided to keep this patient in hospital in [facility] for close monitoring. The patient denies any recent travel or sick exposure. The patient reports that he had regular followup visit with Dr. Puga today, but because he was feeling extremely short of breath, he was not able to make to the clinic and he decided to come to emergency room. He denies any constipation, diarrhea, or recent upper respiratory infection. REVIEW OF SYSTEMS: CONSTITUTIONAL: Negative for weight loss or gain, ability to conduct usual activities. SKIN: Negative for rash, itching. EYES: Negative for double vision, pain. ENT/MOUTH: Negative for nose bleeding, neck stiffness, pain, tenderness. CARDIOVASCULAR: Negative for palpitations, dyspnea on exertion, orthopnea. RESPIRATORY: Negative for shortness of breath, wheezing, cough, hemoptysis, fever or night sweats. GASTROINTESTINAL: Negative for poor appetite, abdominal pain, heartburn, nausea , vomiting, constipation, or diarrhea. GENITOURINARY: Negative for urgency, frequency, dysuria, nocturia. MUSCULOSKELETAL: Negative for pain, swelling. NEUROLOGIC/PSYCHIATRIC: Negative for anxiety, depression. ALLERGY/IMMUNOLOGIC: Negative for skin rash, bleeding tendency. Please see my HPI for pertinent positives and negatives. All other review of systems reviewed and negative except as mentioned in the HPI. PAST MEDICAL HISTORY: COPD/bronchiectasis, benign enlargement of prostate, and chronic respiratory failure. PAST SURGICAL HISTORY: Hernia repair. PAST PSYCHIATRIC HISTORY: Reviewed and negative. SOCIAL HISTORY: The patient is ex-smoker. He quit smoking more than 10 years ago. He drinks alcohol occasionally. He denies any other illicit drug abuse. He is and lives at home with his . FAMILY HISTORY: No family history of coronary artery disease, stroke, or cancer. Both parents in their old age from natural causes. ALLERGY: No known drug allergy EMERGENCY ROOM COURSE: The patient has received Rocephin, azithromycin and IV fluids. PHYSICAL EXAMINATION: VITAL SIGNS: Currently, blood pressure 127/72, pulse 117, respiratory rate 28, temperature 100.5, saturation 95% on nonrebreather. Weight 61.2 kg. GENERAL: The patient currently appears chronically ill, tachycardic, febrile, short of breath. HEENT: Normocephalic, atraumatic. Eyes, pupils round, reactive to light. Extraocular muscle intact. ENT, oropharynx within normal limits. Moist mucous membranes. No oral lesion. No pharyngeal erythema. No exudate. NECK: Supple. No JVD. No thyromegaly. No carotid bruit. LUNGS: Bilateral few end-expiratory wheezing heard. Air entry reduced on left upper lobe with a few scattered crackles heard bilaterally. CARDIAC: S1-S2 regular, tachycardia. No murmur. No gallop. No rub. ABDOMEN: Soft. Bowel sounds present. Nontender. Nondistended. No organomegaly. No mass. No suprapubic tenderness. BACK: Unremarkable. No CVA tenderness. EXTREMITIES: Upper extremities; passive movement of all joints are normal. Lower extremities, no edema. Good distal pulsation. SKIN: No skin rash. HEMATOLOGICAL: No lymphadenopathy. PSYCHIATRIC: Normal affect. SIGNIFICANT LABORATORY DATA: EKG showing sinus tachycardia, nonspecific ST-T changes. Chest x-ray showing worsening of infiltration on left upper lobe, possible left basilar hydropneumothorax. CBC; WBC 21.7, hemoglobin 13.8, platelet 227 with bandemia. BMP; sodium 136, potassium 4.9, chloride 102, carbon dioxide 26, anion gap 13, BUN 19, creatinine 0.84, glucose 97, calcium 8.8, lactic acid 1.7. LFTs; AST 21, ALT 23, alkaline phosphatase 125, and albumin 3.2. ASSESSMENT AND PLAN: Impression: 1. Acute on chronic respiratory failure with hypoxia. 2. Left upper lobe community-acquired pneumonia. 3. Severe sepsis with acute organ dysfunction with respiratory failure secondary to pneumonia. 4. Chronic obstructive pulmonary disease/bronchiectasis. 5. Benign enlargement of prostate. 6. Mild protein calorie malnutrition. PLAN: 1. Admission to IMCU. Pulmonary consultation. Start cefepime 2 g IV q.12h. and levofloxacin 500 mg IV daily and vancomycin for broad coverage. 2. Mucinex 600 mg 3 times daily. DuoNeb therapy q.4h. and p.r.n. basis. Dulera 2 puff inhalation b.i.d. Restart Avodart and Flomax as per home dosage. 3. DVT prophylaxis with Lovenox 40 mg subcutaneous daily. 4. GI prophylaxis with Protonix, Pepcid 20 mg p.o. b.i.d. 5. This patient has suspected pneumo-plastic process and that is why he will need repeat imaging with CT scan and we will defer that investigation to it architecture analyst. This patient will need repeat imaging after antibiotic treatment to see any improvement in his infiltration on the left upper lobe. I spoke with the patient and the patient's at bedside in the emergency room. CODE STATUS: Addressed and the patient is full code. Job ID: [id number] MTDD
[2018-12-19] MEDS ORDERED: HYDROcodone/Acetaminophen 5/325 mg Tablet PO PRN (18:05)
[2018-12-19] MEDS ORDERED: Ondansetron ODT 4 MG TAB PO PRN (18:05)
[2018-12-19] MEDS ORDERED: Calcium Carbonate 500 MG ChewTAB PO PRN (18:05)
[2018-12-19] MEDS ORDERED: Sodium Chloride 0.65% Nasal 44 ML BOT EA NARE PRN (18:05)
[2018-12-19] MEDS ORDERED: Acetaminophen 325 MG TAB PO PRN (18:05)
[2018-12-19] MEDS ORDERED: Zolpidem Tartrate 5 MG TAB PO PRN (18:05)
[2018-12-19] MEDS ORDERED: Cepastat Lozenges 1 LOZ PO PRN (18:05)
[2018-12-19] MEDS ORDERED: Diabetic Tussin 200 MG/10 ML UDCUP PO PRN (18:05)
[2018-12-19] MEDS ORDERED: Bisacodyl 10 MG SUPP PR PRN (18:05)
[2018-12-19] MEDS ORDERED: hydrALAZINE 20 MG/ML VIAL SLOW IVP PRN (18:05)
[2018-12-19] MEDS ORDERED: Senokot S 8.6-50 MG TAB PO PRN (18:05)
[2018-12-19] MEDS ORDERED: Loratadine 10 MG TAB PO PRN (18:05)
[2018-12-19] MEDS ORDERED: Ondansetron PF 4 MG/2 ML Vial IVP PRN (18:05)
[2018-12-19] MEDS ORDERED: Loperamide HCl 2 MG CAP PO PRN (18:05)
[2018-12-19] MEDS: Mometasone/Formoterol 120 PUFF INHALER INH SCH (18:32)
[2018-12-19] MEDS: Sodium Chloride 0.9% 1,000 ML IV SCH (20:16)
[2018-12-19] MEDS: Famotidine 20 MG TAB PO SCH (20:57)
[2018-12-19] MEDS: Cefepime 2 GM in Sodium Chloride 0.9% 100 ML IVPB SCH (20:57)
[2018-12-19] MEDS: guaiFENesin ER 600 MG TAB PO SCH (20:57)
[2018-12-19] MEDS: Vancomycin HCl 750 MG in Sodium Chloride 0.9% 250 ML 250 ML IVPB SCH (20:58)
[2018-12-20 04:41] LABS: #Eosinphils 0.1 thou/uL (0.0-0.7); #Lymphocytes 0.7 thou/uL (1.20-3.40); #Neutrophils 16.1 thou/uL (1.40-6.50); %Basophils 0.3 % (0.0-1.0); %Eosinophils 0.4 % (0.0-10.0); %Lymphocytes 3.7 % (21.0-51.0); %Monocytes 5.7 % (0.0-10.0); Hemoglobin 11.9 g/dL (14.0-18.0); Mean Corpuscular HGB CONC 31.4 g/dL (32.0-36.0); Mean Corpuscular Hemoglobin 31.2 pg (27.0-31.0); Mean Corpuscular Volume 99.3 fL (78.0-98.0); Mean Platelet Volume 8.3 fL (7.4-10.4); Platelet Count 191 thou/uL (130-400); RBC Distribution Width 13.9 % (11.5-14.5); Red Blood Cell (RBC) Count 3.82 mill/uL (4.70-6.10); White Blood Cell (WBC) Count 17.8 thou/uL (4.8-10.8)
[2018-12-20 04:53] LABS: Anion Gap 9 mmol/L (10-20); BUN (Urea Nitrogen) 20 mg/dL (8.4-25.7); Calc. Creatinine Clearance 67 mL/min (70-130); Calcium 8.2 mg/dL (7.8-10.44); Carbon Dioxide 26 mmol/L (23-31); Chloride 106 mmol/L (98-107); Estimated GFR-MDRD Greater than 90; Glucose 97 mg/dL (83-110); Potassium 4.1 mmol/L (3.5-5.1); Sodium 137 mmol/L (136-145)
[2018-12-20] MEDS: Sodium Chloride 0.9% 1,000 ML IV SCH ×2 (06:37→20:13)
[2018-12-20] MEDS: Mometasone/Formoterol 120 PUFF INHALER INH SCH ×2 (07:56→19:36)
[2018-12-20] MEDS: Cefepime 2 GM in Sodium Chloride 0.9% 100 ML IVPB SCH ×2 (08:48→20:11)
[2018-12-20] MEDS: Dutasteride 0.5 MG CAP PO SCH (08:51)
[2018-12-20] MEDS: Vancomycin HCl 750 MG in Sodium Chloride 0.9% 250 ML 250 ML IVPB SCH ×2 (08:51→20:11)
[2018-12-20] MEDS: Famotidine 20 MG TAB PO SCH ×2 (08:51→20:12)
[2018-12-20] MEDS: guaiFENesin ER 600 MG TAB PO SCH ×3 (08:51→20:12)
[2018-12-20] MEDS: Lactinex Tablet PO SCH (08:51)
[2018-12-20] MEDS: Enoxaparin Sodium 40 MG/0.4 ML SYRINGE SC SCH (08:51)
--- NOTE | 2018-12-20 10:24 | PDOC.HOSPP ---
- Subjective Subjective: Patient seen and examined. No new complaints. No overnight events today no fever, feels better - Objective Vital Signs & Weight: Vital Signs (12 hours) Temp Pulse Resp Pulse Ox 12/20/18 07:46 96 22 H 99 12/20/18 07:17 98.9 F 12/20/18 04:00 99.7 F H 12/20/18 02:26 93 16 100 12/19/18 23:56 98.8 F Weight Weight 149 lb 9.6 oz Most Recent Monitor Data Heart Rate from ECG 107 NIBP 109/65 NIBP BP-Mean 79 Respiration from ECG 13 SpO2 98 I&O: 12/19/18 12/20/18 12/21/18 06:59 06:59 06:59 Intake Total 1046 Output Total 100 Balance 946 Result Diagrams: 12/20/18 04:04 12/20/18 04:04 EKG Reviewed by me: Yes (nsr) ROS - Review of Systems All systems: All other ROS were reviewed and found negative. Constitutional: denies: fever, chills, sweats, weakness, malaise, other ENT: denies: ear pain, ear discharge, nose pain, nose discharge, nose congestion , mouth pain, mouth swelling, throat pain, throat swelling, other Respiratory: reports: cough, shortness of breath, SOB with excertion. denies: dry, hemoptysis, pleuritic pain, sputum, wheezing, other Cardiovascular: denies: chest pain, palpitations, orthopnea, paroxysmal noc. dyspnea, edema, light headedness, other Gastrointestinal: denies: nausea, vomitting, abdominal pain, diarrhea, constipation, melena, hematochezia, other Genitourinary: denies: dysuria, frequency, incontinence, hematuria, retention, other Musculoskeletal: denies: neck pain, shoulder pain, arm pain, back pain, hand pain, leg pain, foot pain, other Skin: denies: rash, lesions, mildred, bruising, other - Medication Medications: Active Medications Generic Name Dose Route Start Last Admin Trade Name Freq PRN Reason Stop Dose Admin Acidophilus 1 tab 12/20/18 09:00 12/20/18 08:51 Floranex PO 1 tab DAILY AMBROCIO Administration Albuterol/Ipratropium 3 ml 12/19/18 18:30 12/20/18 07:46 Duoneb NEB 3 ml [id number] AMBROCIO Administration Dutasteride 0.5 mg 12/20/18 09:00 12/20/18 08:51 Avodart PO 0.5 mg DAILY AMBROCIO Administration Enoxaparin Sodium 40 mg 12/20/18 09:00 12/20/18 08:51 Lovenox SC 40 mg 0900 AMBROCIO Administration Famotidine 20 mg 12/19/18 21:00 12/20/18 08:51 Pepcid PO 20 mg BID AMBROCIO Administration Guaifenesin 600 mg 12/19/18 21:00 12/20/18 08:51 Mucinex PO 600 mg TID AMBROCIO Administration Cefepime HCl 2 gm/ Sodium 100 mls @ 200 mls/hr 12/19/18 20:00 12/20/18 08:48 Chloride IVPB 100 mls 08,1999 AMBROCIO Administration Levofloxacin 500 mg/ Device 100 mls @ 100 mls/hr 12/19/18 18:30 12/19/18 20: 16 IVPB 100 mls Q24HR AMBROCIO Administration Sodium Chloride 1,000 mls @ 100 mls/hr 12/19/18 18:05 12/20/18 06:37 Normal Saline 0.9% IV 1,000 mls .Q10H AMBROCIO Administration Vancomycin HCl 750 mg/ Sodium 250 mls @ 250 mls/hr 12/19/18 21:00 12/20/18 08 :51 Chloride IVPB 250 mls Q12HR AMBROCIO Administration Mometasone Furoate/Formoterol Fumar 2 puff 12/19/18 18:30 12/20/18 07:56 Dulera 200 Mcg/5 Mcg Inhaler INH 2 puff BID-RT AMBROCIO Administration Sodium Chloride 10 ml 12/20/18 09:00 12/20/18 08:54 Flush - Normal Saline IVF Not Given Q12HR AMBROCIO - Exam NAD, ill appearing Eye: PERRL, anicteric sclera ENT: normocephalic atraumatic, no oropharyngeal lesions Neck: supple, symmetric, no JVD Heart: RRR, no murmur, no gallops Respiratory: rales, wheezes Gastrointestinal: soft, non-tender, non-distended, normal bowel sounds Extremities: no cyanosis, no clubbing, no edema Skin: normal turgor, no lesions, no rashes Neurological: CN's grossly intact, normal sensation to touch, no focal deficits Musculoskeletal: normal tone, normal strength Psychiatric: normal affect, normal behavior Hosp A/P (1) Acute on chronic respiratory failure with hypoxia Code(s): J96.21 - ACUTE AND CHRONIC RESPIRATORY FAILURE WITH HYPOXIA Status: Acute (2) COPD exacerbation Code(s): J44.1 - CHRONIC OBSTRUCTIVE PULMONARY DISEASE W (ACUTE) EXACERBATION Status: Acute (3) Community acquired bacterial pneumonia Code(s): J15.9 - UNSPECIFIED BACTERIAL PNEUMONIA Status: Acute (4) Severe sepsis with acute organ dysfunction Code(s): A41.9 - SEPSIS, UNSPECIFIED ORGANISM; R65.20 - SEVERE SEPSIS WITHOUT SEPTIC SHOCK Status: Acute (5) Anemia, normocytic normochromic Code(s): D64.9 - ANEMIA, UNSPECIFIED Status: Chronic (6) BPH (benign prostatic hyperplasia) Code(s): N40.0 - BENIGN PROSTATIC HYPERPLASIA WITHOUT LOWER URINRY TRACT SYMP Status: Chronic Qualifiers: (7) Protein-calorie malnutrition, moderate Code(s): E44.0 - MODERATE PROTEIN-CALORIE MALNUTRITION Status: Chronic - Plan old records reviewed/req, continue antibiotics, PT/OT, respiratory therapy continue current empiric antibiotics, will narrow down spectrum soon follow culture result pulmonary consulted possible transfer to medical floor later today medication reviewed as below symptomatic treatment continue vladimir morales mucinex PT and nutritional support code status discussed with pt today and he wants to be DNR
--- NOTE | 2018-12-21 03:35 | CON ---
DATE OF CONSULTATION: HISTORY OF PRESENT ILLNESS: Mr. Patton is an unfortunate gentleman with bronchiectasis. He is followed in my clinic and actually is just marginally functional on a good day coming into the office. He gets short of breath walking from the exam room to the waiting room and vice versa. He is not a somebody whom I have to worry about compliance issues with for the most part, but I do keep him on a pretty short leash and I see him every 1 to 2 months. He has bronchiectasis. He presented to the emergency room after calling the office stating that he had a fever. In the past when he has had fever, he has usually had a pulmonary infection. He says he is feeling better than admission, although he could not remember any of the instructions I gave him when I asked him to repeat back to me. His had similar issues while I was in the room today. PAST MEDICAL HISTORY: Remarkable for, 1. Hypertension. 2. Herniorrhaphy. 3. Deconditioning. 4. Left spontaneous pneumothorax. 5. He no longer drives. 6. He is not a smoker, not a drinker. 7. History of BPH. 8. History of thigh lipoma. 9. History of 2 packs a day for 40 years in the past. 10. He does have a history of drinking in the evening, but there is no record of him drinking to excess. FAMILY HISTORY: Positive for longevity in his parents. REVIEW OF SYSTEMS: Otherwise 12-point negative. PHYSICAL EXAMINATION: VITAL SIGNS: He is afebrile. Heart rate is 102, respiratory rate is in the 20s , oximetry is 94% on 3 L, blood pressure 116/71. GENERAL: He has temporal muscle wasting. He appears quite frail. NECK: Supple. No lymphadenopathy. He has rhonchi diffusely on exam. HEART: Regular rhythm. ABDOMEN: Soft and nontender. EXTREMITIES: Without clubbing, cyanosis, or edema. LABORATORY DATA: Chest radiograph shows a dense left lower lobe alveolar infiltrate. White count 17.8, hemoglobin 11.9, platelets 191. Sodium 137, potassium 4.1, chloride 106, bicarb 26, BUN 20, creatinine 0.7. IMPRESSION: 1. Pneumonia. 2. Bronchiectasis. 3. Chronic obstructive pulmonary disease. 4. Retained secretions with a week cough. We will try switching him to EzPAP. 5. Chronic anemia. 6. BPH. I do not feel he is stable to move to a medical bed. He informed the hospitalist that he did not want life support, but I think both he and his for dealing with some dementia issues, so I am not sure that this is valid. I do think this needs to be discussed with the daughter if it has not already been discussed with the daughter. We will be happy to follow the other physicians caring for him. Reviewed his cultures. He has one blood culture with coag-negative staph and one that is negative. We will continue with current antimicrobial therapy. TIME SPENT: This is a 50-minute consult, 50% of the time was spent on the unit coordinating care. I met with the and answered all of her questions, although she could not repeat back to me the answers to my questions reliably. Job ID: [id number] MTDD
[2018-12-21] MEDS: Mometasone/Formoterol 120 PUFF INHALER INH SCH ×2 (07:57→19:48)
[2018-12-21] MEDS: Lactinex Tablet PO SCH (09:17)
[2018-12-21] MEDS: Enoxaparin Sodium 40 MG/0.4 ML SYRINGE SC SCH (09:17)
[2018-12-21] MEDS: Dutasteride 0.5 MG CAP PO SCH (09:17)
[2018-12-21] MEDS: guaiFENesin ER 600 MG TAB PO SCH ×3 (09:17→21:35)
[2018-12-21] MEDS: Famotidine 20 MG TAB PO SCH ×2 (09:17→21:34)
[2018-12-21] MEDS: Vancomycin HCl 750 MG in Sodium Chloride 0.9% 250 ML 250 ML IVPB SCH (09:18)
[2018-12-21] MEDS: Cefepime 2 GM in Sodium Chloride 0.9% 100 ML IVPB SCH ×2 (09:18→21:34)
--- NOTE | 2018-12-21 10:50 | PDOC.PALCO ---
Palliative Care Consult - Consult Details Requesting Physician: Dr Kim Reason for Consult: advance directives assistance, assistance with communication prognosis/disease, family support Family Members Present: , Son Kristian, Daughter - Pertinent HPI Patient has chronic COPD and not always compliant with medications. He has a fragile health status, and appears to be primary caregiver for his who appears to have pronounced memory loss. Mr Patton is a long time patient of Dr Puga, he was to go to his appointment but secondary to respiratory compromise and weakness he and his decided to go to the emergency room for evaluation. Patient was seen, respiratory state stabilized but transfered to [facility] secondary to need for high flow o2 and tachycardia. Palliative care was consulted for Advance directives and need for family support and assistance with goals of care identified. - Pertinent PMH COPD, enlarged prostate, chronic resp failure. - Social History Smoking Status: Former smoker Smoking: quit greater than 1 year Alcohol Use: occasional Drug Use History: none Living Situation: independent, - Medications MAR Reviewed: Yes - Allergies Allergies/Adverse Reactions: Allergies Allergy/AdvReac Type Severity Reaction Status Date / Time No Known Allergies Allergy Verified 12/06/17 16:12 - Subjective Patient awake, alert, labored respirations. States he had a fall last night, contined weakness. Mild forgetfullness. ROS: Complains of weakness, shortness of breath. All other systems are negative. - Objective Vital Signs: Vital Signs - Most Recent Temp Pulse Resp BP Pulse Ox 98.9 F 99 27 H 124/59 L 95 12/21/18 08:00 12/21/18 07:58 12/21/18 07:58 12/20/18 10:57 12/21/18 02:27 Palliative Performance Scale: 40 - Physical Exam Constitutional: mild distress HEENT: moist MMs, EOMI Deviation from normal: Labored respirations, productive wet cough Gastrointestinal: soft, non-tender Psychiatric: normal affect Deviation from normal: Thin fragile skin, brusing in various stages of healing. - Problem List (1) Palliative care encounter Code(s): Z51.5 - ENCOUNTER FOR PALLIATIVE CARE Current Visit: Yes Status: Acute (2) Physical deconditioning Code(s): R53.81 - OTHER MALAISE Current Visit: Yes Status: Acute Assessment: Weight loss of 15 lbs as per patient increasing weakness. Appetite loss secondary to disease progression. (3) Acute on chronic respiratory failure with hypoxia Code(s): J96.21 - ACUTE AND CHRONIC RESPIRATORY FAILURE WITH HYPOXIA Current Visit: Yes Status: Acute Assessment: chronic disease with continued trajectory towards decline. (4) COPD exacerbation Code(s): J44.1 - CHRONIC OBSTRUCTIVE PULMONARY DISEASE W (ACUTE) EXACERBATION Current Visit: Yes Status: Acute - Plan/Recommendations Plan: Extensive time spent with Patient son and daughter discussing disease trajectory. Theraputic listening. *Rehab Screen *OT/PT Evaluation *Tamara De La Cruz RN completed DNAR and OVT DNAR *Continue supportive care of family and patient *Will provide information of [facility] as patient is primary caregiver to his and assistance may be needed in the future as she will not be able to stay with in Rehab [60] minutes spent on this encounter with >50% of the time in counseling and coordination of care. Thank you for this very appropriate consult.
[2018-12-21] MEDS: Sodium Chloride 0.9% 1,000 ML IV SCH ×2 (11:07→21:34)
--- NOTE | 2018-12-21 11:40 | PDOC.HOSPP ---
- Subjective Subjective: Patient seen and examined. No new complaints. No overnight events - Objective Vital Signs & Weight: Vital Signs (12 hours) Temp Pulse Resp Pulse Ox 12/21/18 11:00 88 14 12/21/18 08:00 98.9 F 12/21/18 07:58 99 27 H 12/21/18 03:37 98.2 F 12/21/18 02:27 97 13 95 12/20/18 23:46 98.8 F Weight Admit Weight 149 lb 9.6 oz Weight 149 lb 9.6 oz Most Recent Monitor Data Heart Rate from ECG 92 NIBP 116/62 NIBP BP-Mean 80 Respiration from ECG 17 SpO2 99 I&O: 12/20/18 12/21/18 12/22/18 06:59 06:59 06:59 Intake Total 1046 3690 Output Total 100 100 Balance 946 3590 Result Diagrams: 12/20/18 04:04 12/20/18 04:04 EKG Reviewed by me: Yes ROS - Review of Systems All systems: All other ROS were reviewed and found negative. Constitutional: reports: weakness, malaise. denies: fever, chills, sweats, other ENT: denies: ear pain, ear discharge, nose pain, nose discharge, nose congestion , mouth pain, mouth swelling, throat pain, throat swelling, other Respiratory: reports: cough, shortness of breath, SOB with excertion, sputum, wheezing. denies: dry, hemoptysis, pleuritic pain, other Cardiovascular: denies: chest pain, palpitations, orthopnea, paroxysmal noc. dyspnea, edema, light headedness, other Gastrointestinal: denies: nausea, vomitting, abdominal pain, diarrhea, constipation, melena, hematochezia, other Genitourinary: denies: dysuria, frequency, incontinence, hematuria, retention, other Musculoskeletal: denies: neck pain, shoulder pain, arm pain, back pain, hand pain, leg pain, foot pain, other Skin: denies: rash, lesions, mildred, bruising, other - Medication Medications: Active Medications Generic Name Dose Route Start Last Admin Trade Name Freq PRN Reason Stop Dose Admin Acidophilus 1 tab 12/20/18 09:00 12/21/18 09:17 Floranex PO 1 tab DAILY AMBROCIO Administration Albuterol/Ipratropium 3 ml 12/20/18 14:30 12/21/18 11:00 Duoneb EZPAP 3 ml [id number] AMBROCIO Administration Dutasteride 0.5 mg 12/20/18 09:00 12/21/18 09:17 Avodart PO 0.5 mg DAILY AMBROCIO Administration Enoxaparin Sodium 40 mg 12/20/18 09:00 12/21/18 09:17 Lovenox SC 40 mg 0900 AMBROCIO Administration Famotidine 20 mg 12/19/18 21:00 12/21/18 09:17 Pepcid PO 20 mg BID AMBROCIO Administration Guaifenesin 600 mg 12/19/18 21:00 12/21/18 09:17 Mucinex PO 600 mg TID AMBROCIO Administration Cefepime HCl 2 gm/ Sodium 100 mls @ 200 mls/hr 12/19/18 20:00 12/21/18 09:18 Chloride IVPB 100 mls 0800,2000 AMBROCIO Administration Levofloxacin 500 mg/ Device 100 mls @ 100 mls/hr 12/19/18 18:30 12/20/18 19: 48 IVPB 100 mls Q24HR AMBROCIO Administration Sodium Chloride 1,000 mls @ 100 mls/hr 12/19/18 18:05 12/21/18 11:07 Normal Saline 0.9% IV Not Given .Q10H AMBROCIO Mometasone Furoate/Formoterol Fumar 2 puff 12/19/18 18:30 12/21/18 07:57 Dulera 200 Mcg/5 Mcg Inhaler INH 2 puff BID-RT AMBROCIO Administration Sodium Chloride 10 ml 12/20/18 09:00 12/21/18 09:19 Flush - Normal Saline IVF 10 ml Q12HR AMBROCIO Administration - Exam NAD, awake alert Eye: PERRL, anicteric sclera ENT: normocephalic atraumatic, no oropharyngeal lesions Neck: supple, symmetric Heart: RRR, no murmur Respiratory: rhonchi, wheezes Gastrointestinal: soft, non-tender, non-distended, normal bowel sounds Extremities: no cyanosis, no clubbing, no edema Skin: normal turgor, no lesions Neurological: CN's grossly intact, normal sensation to touch, no focal deficits Musculoskeletal: normal tone, normal strength Psychiatric: normal affect, normal behavior Hosp A/P (1) Acute on chronic respiratory failure with hypoxia Code(s): J96.21 - ACUTE AND CHRONIC RESPIRATORY FAILURE WITH HYPOXIA Status: Acute (2) COPD exacerbation Code(s): J44.1 - CHRONIC OBSTRUCTIVE PULMONARY DISEASE W (ACUTE) EXACERBATION Status: Acute (3) Community acquired bacterial pneumonia Code(s): J15.9 - UNSPECIFIED BACTERIAL PNEUMONIA Status: Acute (4) Severe sepsis with acute organ dysfunction Code(s): A41.9 - SEPSIS, UNSPECIFIED ORGANISM; R65.20 - SEVERE SEPSIS WITHOUT SEPTIC SHOCK Status: Acute (5) Anemia, normocytic normochromic Code(s): D64.9 - ANEMIA, UNSPECIFIED Status: Chronic (6) BPH (benign prostatic hyperplasia) Code(s): N40.0 - BENIGN PROSTATIC HYPERPLASIA WITHOUT LOWER URINRY TRACT SYMP Status: Chronic Qualifiers: (7) Protein-calorie malnutrition, moderate Code(s): E44.0 - MODERATE PROTEIN-CALORIE MALNUTRITION Status: Chronic - Plan old records reviewed/req, continue antibiotics, respiratory therapy continue empiric antibiotics continue vladimir morales, monicaex he will need placement medication reviewed as below symptomatic treatment
--- NOTE | 2018-12-21 11:47 | PRG ---
DATE OF SERVICE: 12/21/2018 SUBJECTIVE: Mr. Patton is doing well. He fell when trying to get out of the bathroom. He has rubber sole socks on and he always walks with a shuffling gait. Apparently, one of his feet stopped and he fell. He did not injure himself. OBJECTIVE: VITAL SIGNS: He is afebrile. Heart rate , respiratory rate 17, blood pressure 116/62, he is on 2 L cannula. LUNGS: Remarkable for rhonchi diffusely. HEART: Regular rhythm. ABDOMEN: Soft. LABORATORY DATA: A 1/2 blood cultures is positive for Staph, likely contaminant. No new lab today. IMPRESSION AND PLAN: 1. [id number] respiratory failure with hypoxemia. 2. Bronchiectasis. 3. Chronic obstructive pulmonary disease. 4. Community-acquired pneumonia. 5. Deconditioning, extreme. 6. History of spontaneous pneumothorax. 7. History of heavy tobacco use, especially when he was in the [employer]. The bigger issues are dealing with his 's dementia. He wants to go home to take care of her, but this is not possible. We will begin placement evaluations. The best option probably would be for both of them to be in some type of assisted care environment. Job ID: [id number]
[2018-12-21] MEDS: Vancomycin HCl 1.25 GM in Sodium Chloride 0.9% 250 ML 250 ML IVPB SCH (21:36)
[2018-12-22] MEDS: Sodium Chloride 0.9% 1,000 ML IV SCH ×2 (02:53→13:30)
[2018-12-22] MEDS: Mometasone/Formoterol 120 PUFF INHALER INH SCH ×2 (08:10→19:26)
[2018-12-22] MEDS: guaiFENesin ER 600 MG TAB PO SCH ×3 (09:43→20:41)
[2018-12-22] MEDS: Cefepime 2 GM in Sodium Chloride 0.9% 100 ML IVPB SCH (09:43)
[2018-12-22] MEDS: Lactinex Tablet PO SCH (09:43)
[2018-12-22] MEDS: Famotidine 20 MG TAB PO SCH ×2 (09:43→20:41)
[2018-12-22] MEDS: Dutasteride 0.5 MG CAP PO SCH (09:43)
[2018-12-22] MEDS: Vancomycin HCl 1.25 GM in Sodium Chloride 0.9% 250 ML 250 ML IVPB SCH (09:44)
[2018-12-22] MEDS: Enoxaparin Sodium 40 MG/0.4 ML SYRINGE SC SCH (09:45)
--- NOTE | 2018-12-22 11:14 | PDOC.HOSPP ---
- Subjective Subjective: Patient seen and examined. pt is very weak, still has dyspnea and poor effort tolerance, he fell yesterday got laceration, No overnight events - Objective Vital Signs & Weight: Vital Signs (12 hours) Temp Pulse Resp Pulse Ox 12/22/18 10:14 96 18 95 12/22/18 08:28 98.8 F 12/22/18 08:10 81 23 H 95 12/22/18 03:43 97.8 F 12/22/18 02:41 98 12/22/18 02:40 98 12/21/18 23:50 96 12/21/18 23:22 97.9 F Weight Admit Weight 149 lb 9.6 oz Weight 149 lb 9.6 oz Most Recent Monitor Data Heart Rate from ECG 83 NIBP 125/72 NIBP BP-Mean 89 Respiration from ECG 21 SpO2 95 I&O: 12/21/18 12/22/18 12/23/18 06:59 06:59 06:59 Intake Total 3690 3950 Output Total 100 1600 Balance 3590 2350 Result Diagrams: 12/20/18 04:04 12/20/18 04:04 EKG Reviewed by me: Yes ROS - Review of Systems All systems: All other ROS were reviewed and found negative. Constitutional: reports: weakness, malaise. denies: fever, chills, sweats, other Respiratory: reports: cough, shortness of breath, SOB with excertion, sputum, wheezing. denies: dry, hemoptysis, pleuritic pain, other Cardiovascular: denies: chest pain, palpitations, orthopnea, paroxysmal noc. dyspnea, edema, light headedness, other Gastrointestinal: denies: nausea, vomitting, abdominal pain, diarrhea, constipation, melena, hematochezia, other Genitourinary: denies: dysuria, frequency, incontinence, hematuria, retention, other Musculoskeletal: denies: neck pain, shoulder pain, arm pain, back pain, hand pain, leg pain, foot pain, other Skin: denies: rash, lesions, mildred, bruising, other - Medication Medications: Active Medications Generic Name Dose Route Start Last Admin Trade Name Freq PRN Reason Stop Dose Admin Acidophilus 1 tab 12/20/18 09:00 12/22/18 09:43 Floranex PO 1 tab DAILY AMBROCIO Administration Albuterol/Ipratropium 3 ml 12/20/18 14:30 12/22/18 10:14 Duoneb EZPAP 3 ml [id number] AMBROCIO Administration Dutasteride 0.5 mg 12/20/18 09:00 12/22/18 09:43 Avodart PO 0.5 mg DAILY AMBROCIO Administration Enoxaparin Sodium 40 mg 12/20/18 09:00 12/22/18 09:45 Lovenox SC 40 mg 0900 AMBROCIO Administration Famotidine 20 mg 12/19/18 21:00 12/22/18 09:43 Pepcid PO 20 mg BID AMBROCIO Administration Guaifenesin 600 mg 12/19/18 21:00 12/22/18 09:43 Mucinex PO 600 mg TID AMBROCIO Administration Cefepime HCl 2 gm/ Sodium 100 mls @ 200 mls/hr 12/19/18 20:00 12/22/18 09:43 Chloride IVPB 100 mls 0800,2000 AMBROCIO Administration Levofloxacin 500 mg/ Device 100 mls @ 100 mls/hr 12/19/18 18:30 12/21/18 19: 14 IVPB 100 mls Q24HR AMBROCIO Administration Sodium Chloride 1,000 mls @ 100 mls/hr 12/19/18 18:05 12/22/18 02:53 Normal Saline 0.9% IV Not Given .Q10H AMBROCIO Vancomycin HCl 1.25 gm/ Sodium 250 mls @ 166.667 mls/hr 12/21/18 21:00 09:44 Chloride IVPB 250 mls 0900,2100 AMBROCIO Administration Mometasone Furoate/Formoterol Fumar 2 puff 12/19/18 18:30 12/22/18 08:10 Dulera 200 Mcg/5 Mcg Inhaler INH 2 puff BID-RT AMBROCIO Administration Sodium Chloride 10 ml 12/20/18 09:00 12/22/18 09:44 Flush - Normal Saline IVF 10 ml Q12HR AMBROCIO Administration - Exam NAD, awake alert Eye: PERRL, anicteric sclera ENT: normocephalic atraumatic, no oropharyngeal lesions Neck: symmetric, no JVD Heart: RRR, no murmur, no gallops Respiratory: rales, rhonchi Gastrointestinal: soft, non-tender, non-distended, normal bowel sounds Extremities: no cyanosis, no clubbing, no edema (wound with dressing over left elbow) Skin: normal turgor, no lesions Neurological: CN's grossly intact, normal sensation to touch Musculoskeletal: normal tone, normal strength Psychiatric: normal affect, normal behavior Hosp A/P (1) Acute on chronic respiratory failure with hypoxia Code(s): J96.21 - ACUTE AND CHRONIC RESPIRATORY FAILURE WITH HYPOXIA Status: Acute (2) COPD exacerbation Code(s): J44.1 - CHRONIC OBSTRUCTIVE PULMONARY DISEASE W (ACUTE) EXACERBATION Status: Acute (3) Community acquired bacterial pneumonia Code(s): J15.9 - UNSPECIFIED BACTERIAL PNEUMONIA Status: Acute (4) Severe sepsis with acute organ dysfunction Code(s): A41.9 - SEPSIS, UNSPECIFIED ORGANISM; R65.20 - SEVERE SEPSIS WITHOUT SEPTIC SHOCK Status: Acute (5) Anemia, normocytic normochromic Code(s): D64.9 - ANEMIA, UNSPECIFIED Status: Chronic (6) BPH (benign prostatic hyperplasia) Code(s): N40.0 - BENIGN PROSTATIC HYPERPLASIA WITHOUT LOWER URINRY TRACT SYMP Status: Chronic Qualifiers: (7) Protein-calorie malnutrition, moderate Code(s): E44.0 - MODERATE PROTEIN-CALORIE MALNUTRITION Status: Chronic - Plan old records reviewed/req, continue antibiotics, PT/OT, social worker clinical will consider transfer to medical later today continue empiric antibiotics medication reviewed as above symptomatic treatment will need snu placement on discharge
--- NOTE | 2018-12-22 17:00 | PRG ---
DATE OF SERVICE: 12/22/2018 SUBJECTIVE: Brody Patton is doing better. He has no complaints. OBJECTIVE: VITAL SIGNS: He is afebrile. Heart rate is 88, respiratory rate is 18, blood pressure is 135/78. LUNGS: Remarkable for bilateral rhonchi, they are mild. HEART: Regular rhythm. ABDOMEN: Soft. EXTREMITIES: Without edema. LABORATORY DATA: There is no new lab. IMPRESSION: 1. Pneumonia. 2. Bronchiectasis. 3. Chronic obstructive pulmonary disease. 4. Deconditioning and weakness. 5. Weight loss with poor nutritional intake. He only ate about 20% of his lunch by reviewing his plate. He says he will drink Ensure. He is stable to move out of intermediate Care in my opinion. He can be switched to p.o. antimicrobial therapy. He should be evaluated for group home versus rehab, to be transferred early next week. Job ID: [id number]
[2018-12-22] MEDS: Cefdinir 300 MG CAP PO SCH (20:41)
[2018-12-23] MEDS: Sodium Chloride 0.9% 1,000 ML IV SCH ×2 (00:01→09:06)
[2018-12-23] MEDS: Mometasone/Formoterol 120 PUFF INHALER INH SCH ×2 (08:21→18:13)
[2018-12-23] MEDS: guaiFENesin ER 600 MG TAB PO SCH ×3 (09:06→20:20)
[2018-12-23] MEDS: Dutasteride 0.5 MG CAP PO SCH (09:06)
[2018-12-23] MEDS: Lactinex Tablet PO SCH (09:07)
[2018-12-23] MEDS: Enoxaparin Sodium 40 MG/0.4 ML SYRINGE SC SCH (09:07)
[2018-12-23] MEDS: Famotidine 20 MG TAB PO SCH ×2 (09:07→20:20)
[2018-12-23] MEDS: Cefdinir 300 MG CAP PO SCH ×2 (09:07→20:20)
--- NOTE | 2018-12-23 13:11 | PDOC.HOSPP ---
- Subjective Subjective: Patient seen and examined. No new complaints. No overnight events - Objective Vital Signs & Weight: Vital Signs (12 hours) Temp Pulse Resp Pulse Ox 12/23/18 10:38 88 20 97 12/23/18 08:22 91 25 H 97 12/23/18 08:10 97 12/23/18 07:33 97.8 F 12/23/18 03:45 95 12/23/18 03:33 98.8 F Weight Admit Weight 149 lb 9.6 oz Weight 149 lb 9.6 oz Most Recent Monitor Data Heart Rate from ECG 90 NIBP 126/65 NIBP BP-Mean 85 Respiration from ECG 22 SpO2 100 I&O: 12/22/18 12/23/18 12/24/18 06:59 06:59 06:59 Intake Total 3950 1400 360 Output Total 1600 400 200 Balance 2350 1000 160 Result Diagrams: 12/20/18 04:04 12/20/18 04:04 EKG Reviewed by me: Yes ROS - Review of Systems All systems: All other ROS were reviewed and found negative. Constitutional: reports: weakness. denies: fever, chills, sweats, malaise, other Eyes: denies: pain, vision change, conjunctivae inflammation, eyelid inflammation, redness, other ENT: denies: ear pain, ear discharge, nose pain, nose discharge, nose congestion , mouth pain, mouth swelling, throat pain, throat swelling, other Respiratory: reports: cough, shortness of breath, SOB with excertion. denies: dry, hemoptysis, pleuritic pain, sputum, wheezing, other Cardiovascular: denies: chest pain, palpitations, orthopnea, paroxysmal noc. dyspnea, edema, light headedness, other Gastrointestinal: denies: nausea, vomitting, abdominal pain, diarrhea, constipation, melena, hematochezia, other Genitourinary: denies: dysuria, frequency, incontinence, hematuria, retention, other Musculoskeletal: denies: neck pain, shoulder pain, arm pain, back pain, hand pain, leg pain, foot pain, other Skin: denies: rash, lesions, mildred, bruising, other - Medication Medications: Active Medications Generic Name Dose Route Start Last Admin Trade Name Freq PRN Reason Stop Dose Admin Acidophilus 1 tab 12/20/18 09:00 12/23/18 09:07 Floranex PO 1 tab DAILY AMBROCIO Administration Albuterol/Ipratropium 3 ml 12/20/18 14:30 12/23/18 10:38 Duoneb EZPAP 3 ml [id number] AMBROCIO Administration Cefdinir 300 mg 12/22/18 21:00 12/23/18 09:07 Omnicef PO 300 mg BID AMBROCIO Administration Dutasteride 0.5 mg 12/20/18 09:00 12/23/18 09:06 Avodart PO 0.5 mg DAILY AMBROCIO Administration Enoxaparin Sodium 40 mg 12/20/18 09:00 12/23/18 09:07 Lovenox SC 40 mg 0900 AMBROCIO Administration Famotidine 20 mg 12/19/18 21:00 12/23/18 09:07 Pepcid PO 20 mg BID AMBROCIO Administration Guaifenesin 600 mg 12/19/18 21:00 12/23/18 09:06 Mucinex PO 600 mg TID AMBROCIO Administration Sodium Chloride 1,000 mls @ 100 mls/hr 12/19/18 18:05 12/23/18 09:06 Normal Saline 0.9% IV 1,000 mls .Q10H AMBROCIO Administration Mometasone Furoate/Formoterol Fumar 2 puff 12/19/18 18:30 12/23/18 08:21 Dulera 200 Mcg/5 Mcg Inhaler INH 2 puff BID-RT AMBROCIO Administration Sodium Chloride 10 ml 12/20/18 09:00 12/23/18 09:07 Flush - Normal Saline IVF Not Given Q12HR AMBROCIO - Exam NAD, awake alert Eye: PERRL, anicteric sclera ENT: normocephalic atraumatic, no oropharyngeal lesions Neck: supple, symmetric, no JVD, no Thyromegaly Heart: RRR, no murmur, no gallops Respiratory: rales, rhonchi, wheezes Gastrointestinal: soft, non-tender, non-distended, normal bowel sounds Extremities: no cyanosis, no clubbing, no edema Skin: normal turgor, no lesions Neurological: CN's grossly intact, normal sensation to touch, no focal deficits , no new deficit Musculoskeletal: normal tone, normal strength Psychiatric: normal affect, normal behavior Hosp A/P (1) Acute on chronic respiratory failure with hypoxia Code(s): J96.21 - ACUTE AND CHRONIC RESPIRATORY FAILURE WITH HYPOXIA Status: Acute (2) COPD exacerbation Code(s): J44.1 - CHRONIC OBSTRUCTIVE PULMONARY DISEASE W (ACUTE) EXACERBATION Status: Acute (3) Community acquired bacterial pneumonia Code(s): J15.9 - UNSPECIFIED BACTERIAL PNEUMONIA Status: Acute (4) Severe sepsis with acute organ dysfunction Code(s): A41.9 - SEPSIS, UNSPECIFIED ORGANISM; R65.20 - SEVERE SEPSIS WITHOUT SEPTIC SHOCK Status: Acute (5) Anemia, normocytic normochromic Code(s): D64.9 - ANEMIA, UNSPECIFIED Status: Chronic (6) BPH (benign prostatic hyperplasia) Code(s): N40.0 - BENIGN PROSTATIC HYPERPLASIA WITHOUT LOWER URINRY TRACT SYMP Status: Chronic Qualifiers: (7) Protein-calorie malnutrition, moderate Code(s): E44.0 - MODERATE PROTEIN-CALORIE MALNUTRITION Status: Chronic - Plan old records reviewed/req, plan discussed w/ family, continue antibiotics, PT/OT , social service assistant, respiratory therapy, dc IVF transfer to medical floor medication reviewed as below symptomatic treatment continue oral omnicef continue respiratory therapu slow improvement noted will need placement
--- NOTE | 2018-12-23 17:58 | PRG ---
DATE OF SERVICE: 12/23/2018 SUBJECTIVE: Mr. Patton is unchanged. He says he is feeling better. OBJECTIVE: VITAL SIGNS: He is afebrile, heart rates in the 90s, respiratory rate 17, oximetry is 98%, and blood pressure 141/76. LUNGS: Remarkable for mild rhonchi. HEART: Regular rhythm. ABDOMEN: Soft. IMPRESSION: 1. Bronchiectasis. 2. Chronic obstructive pulmonary disease. 3. Community-acquired pneumonia. [facility] placement is the next step. Job ID: [id number]
[2018-12-24] MEDS: Mometasone/Formoterol 120 PUFF INHALER INH SCH ×2 (08:13→18:32)
[2018-12-24] MEDS: Famotidine 20 MG TAB PO SCH ×2 (10:33→21:18)
[2018-12-24] MEDS: Cefdinir 300 MG CAP PO SCH ×2 (10:33→21:18)
[2018-12-24] MEDS: guaiFENesin ER 600 MG TAB PO SCH ×3 (10:33→21:18)
[2018-12-24] MEDS: Lactinex Tablet PO SCH (10:33)
[2018-12-24] MEDS: Enoxaparin Sodium 40 MG/0.4 ML SYRINGE SC SCH (10:34)
--- NOTE | 2018-12-24 12:05 | PDOC.HOSPP ---
- Subjective Subjective: Patient seen and examined. No new complaints. No overnight events - Objective Vital Signs & Weight: Vital Signs (12 hours) Temp Pulse Resp BP Pulse Ox 12/24/18 11:47 86 18 12/24/18 08:13 77 20 12/24/18 08:04 99 12/24/18 08:00 77 20 12/24/18 07:19 98.5 F 77 16 142/65 H 99 12/24/18 04:00 99.1 F 82 18 118/57 L 93 L 12/24/18 00:00 98.8 F 95 21 H 121/60 93 L Weight Admit Weight 149 lb 9.6 oz Weight 149 lb 9.6 oz Most Recent Monitor Data Heart Rate from ECG 90 NIBP 126/65 NIBP BP-Mean 85 Respiration from ECG 22 SpO2 100 I&O: 12/23/18 12/24/18 12/25/18 06:59 06:59 06:59 Intake Total 1400 1340 Output Total 400 320 Balance 1000 1020 Result Diagrams: 12/20/18 04:04 12/20/18 04:04 ROS - Review of Systems All systems: All other ROS were reviewed and found negative. Constitutional: denies: fever, chills, sweats, weakness, malaise, other Eyes: denies: pain, vision change, conjunctivae inflammation, eyelid inflammation, redness, other ENT: denies: ear pain, ear discharge, nose pain, nose discharge, nose congestion , mouth pain, mouth swelling, throat pain, throat swelling, other Respiratory: reports: SOB with excertion. denies: cough, dry, shortness of breath, hemoptysis, pleuritic pain, sputum, wheezing, other Cardiovascular: denies: chest pain, palpitations, orthopnea, paroxysmal noc. dyspnea, edema, light headedness, other Gastrointestinal: denies: nausea, vomitting, abdominal pain, diarrhea, constipation, melena, hematochezia, other Genitourinary: denies: dysuria, frequency, incontinence, hematuria, retention, other Musculoskeletal: denies: neck pain, shoulder pain, arm pain, back pain, hand pain, leg pain, foot pain, other - Medication Medications: Active Medications Generic Name Dose Route Start Last Admin Trade Name Freq PRN Reason Stop Dose Admin Acidophilus 1 tab 12/20/18 09:00 12/24/18 10:33 Floranex PO 1 tab DAILY AMBROCIO Administration Albuterol/Ipratropium 3 ml 12/20/18 14:30 12/24/18 11:47 Duoneb EZPAP 3 ml [id number] AMBROCIO Administration Cefdinir 300 mg 12/22/18 21:00 12/24/18 10:33 Omnicef PO 300 mg BID AMBROCIO Administration Dutasteride 0.5 mg 12/20/18 09:00 12/23/18 09:06 Avodart PO 0.5 mg DAILY AMBROCIO Administration Enoxaparin Sodium 40 mg 12/20/18 09:00 12/24/18 10:34 Lovenox SC 40 mg 0900 AMBROCIO Administration Famotidine 20 mg 12/19/18 21:00 12/24/18 10:33 Pepcid PO 20 mg BID AMBROCIO Administration Guaifenesin 600 mg 12/19/18 21:00 12/24/18 10:33 Mucinex PO 600 mg TID AMBROCIO Administration Mometasone Furoate/Formoterol Fumar 2 puff 12/19/18 18:30 12/24/18 08:13 Dulera 200 Mcg/5 Mcg Inhaler INH 2 puff BID-RT AMBROCIO Administration Sodium Chloride 10 ml 12/20/18 09:00 12/24/18 10:30 Flush - Normal Saline IVF Not Given Q12HR AMBROCIO - Exam NAD, awake alert Eye: PERRL, anicteric sclera ENT: normocephalic atraumatic, no oropharyngeal lesions Neck: supple, symmetric, no JVD Heart: RRR, no murmur, no gallops, no rubs Respiratory: CTAB, wheezes Gastrointestinal: soft, non-tender, non-distended, normal bowel sounds Extremities: no cyanosis, no clubbing, no edema Skin: normal turgor, no lesions, no rashes Neurological: CN's grossly intact, normal sensation to touch, no focal deficits , no new deficit Musculoskeletal: normal tone, normal strength Hosp A/P (1) Acute on chronic respiratory failure with hypoxia Code(s): J96.21 - ACUTE AND CHRONIC RESPIRATORY FAILURE WITH HYPOXIA Status: Acute (2) COPD exacerbation Code(s): J44.1 - CHRONIC OBSTRUCTIVE PULMONARY DISEASE W (ACUTE) EXACERBATION Status: Acute (3) Community acquired bacterial pneumonia Code(s): J15.9 - UNSPECIFIED BACTERIAL PNEUMONIA Status: Acute (4) Severe sepsis with acute organ dysfunction Code(s): A41.9 - SEPSIS, UNSPECIFIED ORGANISM; R65.20 - SEVERE SEPSIS WITHOUT SEPTIC SHOCK Status: Acute (5) Anemia, normocytic normochromic Code(s): D64.9 - ANEMIA, UNSPECIFIED Status: Chronic (6) BPH (benign prostatic hyperplasia) Code(s): N40.0 - BENIGN PROSTATIC HYPERPLASIA WITHOUT LOWER URINRY TRACT SYMP Status: Chronic Qualifiers: (7) Protein-calorie malnutrition, moderate Code(s): E44.0 - MODERATE PROTEIN-CALORIE MALNUTRITION Status: Chronic - Plan old records reviewed/req, continue antibiotics, PT/OT, social service technician, respiratory therapy medication reviewed as above symptomatic treatment will need snu placement improving
[2018-12-24] MEDS: Dutasteride 0.5 MG CAP PO SCH (12:21)
--- NOTE | 2018-12-24 19:14 | PRG ---
DATE OF SERVICE: 12/24/2018 SUBJECTIVE: Mr. Patton is doing well. He has no complaints. OBJECTIVE: VITAL SIGNS: He is afebrile, heart rate is in 80s, respiratory rate is 19, oximetry is 91% on 2 L, blood pressure 130/69. LUNGS: He has rhonchi bilaterally. He always has rhonchi bilaterally. HEART: Regular rhythm. ABDOMEN: Soft, nontender. EXTREMITIES: Without edema. IMPRESSION: 1. Pneumonia with bronchiectasis and underlying chronic obstructive pulmonary disease. 2. Acute on chronic respiratory failure with hypoxia. 3. Deconditioning. 4. His daughter now wants to try to get him closer to her in [place]. She has 2 places in mind, we will pass this onto the director of casework. 5. Unfortunately, he has early dementia and the has fairly advanced dementia. Job ID: [id number]
[2018-12-25] MEDS: Dutasteride 0.5 MG CAP PO SCH (08:27)
[2018-12-25] MEDS: guaiFENesin ER 600 MG TAB PO SCH ×2 (08:27→14:52)
[2018-12-25] MEDS: Famotidine 20 MG TAB PO SCH (08:28)
[2018-12-25] MEDS: Lactinex Tablet PO SCH (08:28)
[2018-12-25] MEDS: Cefdinir 300 MG CAP PO SCH (08:28)
[2018-12-25] MEDS: Enoxaparin Sodium 40 MG/0.4 ML SYRINGE SC SCH (08:29)
[2018-12-25] MEDS: Mometasone/Formoterol 120 PUFF INHALER INH SCH (08:32)
--- NOTE | 2018-12-25 09:40 | PRG ---
DATE OF SERVICE: 12/25/2018 OBJECTIVE: VITAL SIGNS: Mr. Patton heart rate in the 80s, respiratory rate in the teens, and oximetry is 91% on 2 L. LUNGS: Clear. HEART: Regular rhythm. ABDOMEN: Soft. IMPRESSION: 1. Pneumonia. 2. Bronchiectasis. 3. Chronic obstructive pulmonary disease. 4. Deconditioning. 5. Early dementia. PLAN: Plan is for placement. His daughter wants him to go to [place], where she can check on him. He is not up for this at this time, but I have asked him to consider this. Job ID: [id number]
[2018-12-25 11:50] VITALS: TEMP 97.9
--- NOTE | 2018-12-25 13:57 | DIS ---
DATE OF ADMISSION: 12/19/2018 DATE OF DISCHARGE: 12/25/2018 PRIMARY CARE PHYSICIAN: Dr. De Olmedo. DISCHARGE DISPOSITION: Rehab. PRIMARY DISCHARGE DIAGNOSES: Acute on chronic respiratory failure with hypoxia and community-acquired bacterial pneumonia, chronic obstructive pulmonary disease exacerbation, and severe sepsis with acute organ dysfunction. SECONDARY DISCHARGE DIAGNOSES: Anemia normocytic normochromic, benign enlargement of prostate, protein-calorie malnutrition, moderate chronic respiratory failure, chronic obstructive pulmonary disease, and physical deconditioning. PRIMARY PROCEDURE/OPERATION: None. RADIOLOGICAL INVESTIGATION: Chest x-ray showed left upper lobe consolidation. SIGNIFICANT LABORATORY DATA: WBC 17.8, hemoglobin 11.9, platelet 191. Sodium 137, creatinine 0.72. AST 21, ALT 23, alkaline phosphatase 125, and albumin 3.2. Blood culture was contaminant. DISCHARGE MEDICATIONS: 1. Aspirin 81 mg p.o. daily. 2. Omnicef 300 mg p.o. b.i.d. for 7 more days. 3. Avodart 0.5 mg p.o. daily. 4. Pepcid 20 mg p.o. b.i.d. 5. Mucinex 600 mg p.o. t.i.d. 6. DuoNeb q.6 hourly p.r.n. 7. Floranex one tablet p.o. daily. 8. Dulera 2 puffs inhalation b.i.d. 9. Prednisone 10 mg p.o. b.i.d. for 5 days. 10. Seroquel 25 mg p.o. at bedtime. 11. Flomax 0.4 mg p.o. daily. DISCHARGE PLAN: Posthospital, the patient will follow up with Dr. Puga for repeat chest x-ray. The patient is planned for discharge to nursing home home. HOSPITAL COURSE: An 88-year-old male with above-mentioned medical problem, who was admitted by me. Please see my HPI for further details. The patient was having increasing cough, increasing shortness of breath. He was more weak. On admission, he was having acute on chronic respiratory failure with hypoxia. He had leukocytosis. His chest x-ray was showing left upper lobe consolidation. There was concern of underlying malignancy, but during this admission, we treated him for infection. The patient will need repeat imaging after discharge in 2 to 3 weeks. The patient will follow up with Dr. Puga. Dr. Puga was following while in hospital. The patient was physically weak and that is why he required placement to rehab. His oxygen requirement improved to baseline level. The patient is up to his baseline level as well. On discharge, we changed to Omnicef antibiotic as well as prednisone for another 7 days. Rest of medication, he will continue as per previous. I have seen and examined the patient at bedside today. Plan of care discussed with the patient and family member at bedside. REVIEW OF SYSTEMS: Review of systems reviewed with him and negative. Paperwork for discharge done and discharge medication reconciliation done. PHYSICAL EXAMINATION: VITAL SIGNS: Today vital signs; temperature 97.9, pulse 97, respiratory rate 20, saturation 96% on 2 L, and blood pressure 135/67. Weight 149 pounds. GENERAL: The patient is currently alert and awake, in no obvious acute distress. HEENT: Normocephalic and atraumatic. LUNGS: Coarse rales over left upper lobe, but no accessory muscles of respiration in use. CARDIAC: S1 and S2 appear regular without any murmur. ABDOMEN: Soft and benign. EXTREMITIES: No edema. NEUROLOGIC: Grossly nonfocal examination. The patient is stable for discharge today, back to rehab and subsequently, he will follow up with Dr. Puga as instructed. Job ID: [id number]
[2018-12-25 15:14] VITALS: BP 117/61
[2018-12-25 15:19] VITALS: BMI 21.4
--- NOTE | 2018-12-26 13:30 | EKG ---
Test Reason : Blood Pressure : / mmHG Vent. Rate : 117 BPM Atrial Rate : 117 BPM P-R Int : 180 ms QRS Dur : 070 ms QT Int : 304 ms P-R-T Axes : 025 102 026 degrees QTc Int : 424 ms Sinus tachycardia Possible Left atrial enlargement Rightward axis Septal infarct , age undetermined T wave abnormality, consider anterior ischemia Abnormal ECG Confirmed by DEYSI SMALL DO ([id number]), commissioning editor CARIDAD MYLES ([id number]) on 12/26/2018 1:29:43 PM Referred By: Confirmed By:DEYSI SMALL DO
== END 2018-12-25 15:40 | DRG 871 ==
LOC: ERS 11:59 → IMCU/EMU 17:58 → T4-B 12-23 10:52
PROVIDERS: ADMIT Internal Medicine; ATTEND Internal Medicine
DX: A41.9 Sepsis, unspecified organism (principal); J96.21 Acute and chronic respiratory failure with hypoxia; J18.9 Pneumonia, unspecified organism; E44.1 Mild protein-calorie malnutrition; J44.0 Chronic obstructive pulmonary disease with (acute) lower respiratory infection; J44.1 Chronic obstructive pulmonary disease with (acute) exacerbation; Z51.5 Encounter for palliative care; Z66 Do not resuscitate; R65.20 Severe sepsis without septic shock; D64.9 Anemia, unspecified; N40.0 Benign prostatic hyperplasia without lower urinary tract symptoms; Z98.890 Other specified postprocedural states; Z87.891 Personal history of nicotine dependence; Z68.21 Body mass index [BMI] 21.0-21.9, adult
CPT/HCPCS: 36415; 71045; 80048; 80053; 80202; 83605; 85025; 87040; 87149; 93005; 94640; 96361; 96365; 96367; J0456; J0692; J0696; J1650; J1956; J3370; J3490; J7050; J7620